=== PATIENT | female | born 1995 | race Caucasian/White ===

== ENCOUNTER 2020-07-10 10:45 | Outpatient (REF) | payer OTHER, SELFPAY | END 2020-07-10 10:46 | disposition home or self-care (01) | LOC: HO.LAB 10:45 | PROVIDERS: Visit Provider Internal Medicine | DX: Z20.828 Contact with and (suspected) exposure to other viral communicable diseases (principal) | CPT/HCPCS: C9803; U0003 ==

== ENCOUNTER 2020-07-24 12:38 | Emergency (ER) | payer OTHER, SELFPAY ==
[2020-07-24 12:51] VITALS: BP 136/79; PULSE 106; RESP 18; TEMP 37.2; O2SAT 97; BMI 30.1
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
[2020-07-24] MEDS: Acetaminophen 325 MG TABLET 975 MG PO (13:09)
[2020-07-24] MEDS: Bacitracin Oint 14 GM TUBE 1 APPL TOPICAL (13:11)
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
--- NOTE | 2020-07-24 14:46 | PC.NURSE ---
PT TO TRAVEL VIA PERSONAL CAR AT HER REQUEST, [employer] [facility] IS ACCEPTING PROVIDER, [employer]RA TRANSFER FORM OBTAINED
== END 2020-07-24 14:44 | disposition home or self-care (01) ==
PROVIDERS: Emergency Provider Emergency Medicine; PCP Internal Medicine
DX: O26.92 Pregnancy related conditions, unspecified, second trimester (principal); T21.22XA Burn of second degree of abdominal wall, initial encounter; T24.219A Burn of second degree of unspecified thigh, initial encounter; T31.0 Burns involving less than 10% of body surface; X11.8XXA Contact with other hot tap-water, initial encounter; Y92.000 Kitchen of unspecified non-institutional (private) residence as the place of occurrence of the external cause; Z3A.27 27 weeks gestation of pregnancy; Z79.899 Other long term (current) drug therapy
CPT/HCPCS: 99283; 99284; 99291

== ENCOUNTER 2020-07-27 12:56 | Emergency (ER) | payer OTHER, SELFPAY ==
[2020-07-27 13:59] VITALS: BP 109/53; PULSE 86; RESP 18; TEMP 36.8; O2SAT 98; BMI 29.6
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
[2020-07-27] MEDS: Silver Sulfadiazine 1 % Cream 20 GM TUBE 1 APPL TOPICAL (14:30)
[2020-07-27] MEDS: Acetaminophen 325 MG TABLET 650 MG PO (14:49)
--- NOTE | 2020-07-27 15:14 | PC.NURSE ---
HEART TONES 143 BPM, RIYA STERN
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
== END 2020-07-27 14:55 | disposition home or self-care (01) ==
PROVIDERS: Emergency Provider Emergency Medicine; PCP Internal Medicine
DX: T21.12XA Burn of first degree of abdominal wall, initial encounter (principal); T26.02XA Burn of left eyelid and periocular area, initial encounter; T26.01XA Burn of right eyelid and periocular area, initial encounter; X11.8XXA Contact with other hot tap-water, initial encounter; Y93.9 Activity, unspecified; Y92.9 Unspecified place or not applicable; Y99.8 Other external cause status; Z79.899 Other long term (current) drug therapy
CPT/HCPCS: 99283

== ENCOUNTER 2020-07-30 07:59 | Outpatient (RCR) | payer OTHER, SELFPAY | END 2020-08-15 08:08 | disposition home or self-care (01) | LOC: HO.WCC 07:59 | PROVIDERS: PCP Internal Medicine; Visit Provider Physician Assistant | DX: Z09 Encounter for follow-up examination after completed treatment for conditions other than malignant neoplasm (principal); Z33.1 Pregnant state, incidental; Z3A.24 24 weeks gestation of pregnancy | CPT/HCPCS: 99204; 99212 ==

== ENCOUNTER 2020-08-26 11:35 | Outpatient (REF) | payer OTHER, SELFPAY | END 2020-08-26 11:36 | disposition home or self-care (01) | LOC: HO.LAB 11:35 | PROVIDERS: Visit Provider Internal Medicine | DX: Z20.828 Contact with and (suspected) exposure to other viral communicable diseases (principal) | CPT/HCPCS: C9803; U0003 ==

== ENCOUNTER 2021-02-07 16:42 | Outpatient (REF) | payer OTHER, SELFPAY ==
[2021-02-07 19:20] LABS: Influenza A PCR NEGATIVE (Negative); Influenza B PCR NEGATIVE (Negative); Resp Syncy Virus RNA Qual PCR NEGATIVE (Negative); SARS COV2 PCR INHOUSE NEGATIVE (Negative)
== END 2021-02-07 16:43 | disposition home or self-care (01) ==
LOC: HO.LAB 16:42
PROVIDERS: Visit Provider Nurse Practitioner Family
DX: Z20.822 Contact with and (suspected) exposure to COVID-19 (principal); R05 Cough
CPT/HCPCS: 0241U; 36415

== ENCOUNTER 2021-05-30 09:15 | Outpatient (REF) | payer OTHER, SELFPAY | END 2021-05-30 09:16 | disposition home or self-care (01) | LOC: HO.LAB 09:15 | PROVIDERS: PCP Internal Medicine; Visit Provider Internal Medicine | DX: Z20.822 Contact with and (suspected) exposure to COVID-19 (principal) | CPT/HCPCS: C9803; U0003; U0005 ==

== ENCOUNTER 2021-06-05 20:35 | Emergency (ER) | payer OTHER, SELFPAY | END 2021-06-05 21:34 | disposition left against medical advice (07) | PROVIDERS: Emergency Provider Emergency Medicine; PCP Internal Medicine | DX: R10.9 Unspecified abdominal pain (principal) ==

== ENCOUNTER 2021-06-10 09:03 | Outpatient (REF) | payer OTHER, SELFPAY | END 2021-06-10 09:04 | disposition home or self-care (01) | LOC: HO.LAB 09:03 | PROVIDERS: Visit Provider Internal Medicine | DX: Z20.822 Contact with and (suspected) exposure to COVID-19 (principal) | CPT/HCPCS: C9803; U0003; U0005 ==

== ENCOUNTER 2021-07-24 08:21 | Emergency (ER) | payer OTHER, SELFPAY ==
[2021-07-24 08:38] VITALS: BMI 25.8
[2021-07-24 08:42] VITALS: BP 117/67; PULSE 70; RESP 18; TEMP 36.1; O2SAT 100
[2021-07-24 09:29] LABS: MANUAL DIFF FLAG NO
[2021-07-24 09:31] LABS: Basophils Percent Auto 0.3 % (0-2); Eosinophils Absolute Auto 0.1 X10*3/uL (0.0-0.4); Eosinophils Percent Auto 1.1 % (0-4); Hematocrit 38.7 % (37.0-47.0); Imm Gran Abs Auto 0.02 X10*3/uL (0.00-0.03); Imm Gran Pct Auto 0.3 % (0.0-0.4); Lymphocytes Absolute Auto 1.7 X10*3/uL (1.2-4.9); Mean Corpuscular HGB Conc 33.6 g/dl (31.0-35.0); Mean Corpuscular Hemoglobin 30.7 pg (27.0-33.0); Mean Corpuscular Volume 91.3 fL (80.0-98.0); Mean Platelet Volume 11.7 fL (9.4-12.3); Monocytes Absolute Auto 0.4 X10*3/uL (0.1-1.2); Monocytes Percent Auto 6.8 % (2-11); Neutrophils Absolute Auto 4.2 x10*3/uL (2.0-8.3); Neutrophils Percent Auto 65.5 % (45-73); Platelet Count 194 X10*3/uL (160-400); Red Blood Count 4.24 X10*6/uL (4.20-5.50); Red Cell Distribution Width 12.6 % (11.0-16.0); White Blood Count 6.4 X10*3/uL (4.8-10.8)
[2021-07-24 09:33] LABS: Appearance Urine CLOUDY; Color Urine ORANGE; Glucose Urine UA NEG (NEG); Leukocyte Esterase Urine TRACE (NEG); Nitrite Urine NEG (NEG); Specific Gravity - Urine 1.025 (1.005-1.025); UACC Culture Trigger YES; Urine Blood 3+ (NEG); Urine Ketones 5 MG/DL (NEG); Urine Protein 1+ MG/DL (NEG-TRACE)
[2021-07-24 09:36] LABS: UPreg QC Valid YES; Urine Pregnancy NEGATIVE (NEGATIVE)
[2021-07-24 09:49] LABS: Anion Gap 9 (12-20); Blood Urea Nitrogen 11 mg/dL (9-16); Calcium 8.8 mg/dL (8.4-10.2); Carbon Dioxide 27 mmol/L (22-29); Chloride 109 mmol/L (96-108); Creatinine Clr Calc Pharmacy 109.1; Estimated Glomerular Filt Rate > 60; Glucose Random 92 mg/dL (60-115); Potassium 4.2 mmol/L (3.3-5.1); Sodium 141 mmol/L (135-145)
[2021-07-24 09:58] LABS: Alanine Aminotransferase 25 U/L (0-31); Albumin Level 3.9 g/dL (3.5-5.0); Alkaline Phosphatase 77 U/L (39-117); Aspartate Amino Transferase 18 U/L (5-31); Bilirubin Direct 0.2 mg/dL (0.0-0.5); Bilirubin Total 0.6 mg/dL (0.0-1.0); Lipase 17 U/L (8-78); Magnesium 2.1 mg/dL (1.6-2.6); Total Protein 6.1 g/dL (6.5-8.0)
--- NOTE | 2021-07-24 10:29 | ED.ABDPAIN ---
HPI - Abdominal Pain General Chief Complaint: Abdominal Pain Stated Complaint: PELVIC LOWER ABD PAIN Time Seen by Provider: 07/24/21 09:30 Source: patient Mode of arrival: ambulatory History of Present Illness HPI narrative: 26-year-old female presenting to the ED complaining of suprapubic/pelvic pain x a few days and feeling movement in her abdomen. Also reports brown vaginal discharge. LMP 2 weeks ago. Is sexually active without the concern for STI. Denies fever, chills, nausea, vomiting and diarrhea/constipation, vaginal bleeding, vaginal lesions, dysuria/hematuria, flank pain MD elicited complaint: abdominal pain Related Data Home Medications Medication Instructions Recorded Confirmed medroxyprogesterone 150 mg/mL 150 mg IM [id number] 02/07/21 intramuscular suspension Previous Rx's Medication Instructions Recorded acetaminophen 325 mg tablet 650 mg PO Q6H PRN #14 tab 07/24/20 (Tylenol) nitrofurantoin 100 mg PO Q12H 7 Days #14 cap 07/24/21 monohydrate/macrocrystals 100 mg capsule (Macrobid) Allergies Allergy/AdvReac Type Severity Reaction Status Date / Time No Known Allergies Allergy Unverified 05/23/20 18:11 Review of Systems Review of Systems Constitutional: No Fever, No Chills, No Fatigue, No Malaise ENT/Mouth: No Ear Pain, No Nasal Congestion, No sore throat, No Rhinorrhea, No Swallowing Difficulty Eyes: No Eye Pain, No Swelling, No Redness Cardiovascular: No Chest Pain, No SOB, No Edema Respiratory: No Cough, No Sputum Gastrointestinal: No Nausea, No Vomiting, No Diarrhea, No Constipation, + Abdominal pain Genitourinary: No irregular bleeding, + vaginal discharge, No Dysuria, No Urinary Frequency, No Hematuria, No Flank Pain, No Urinary Flow Changes Musculoskeletal: No joint pain, No Myalgias, No Joint Swelling Skin: No Skin Lesions, No rash Neuro: No Weakness, No Numbness, No Headache Yes all other systems are reviewed and are negative Physical Exam Vital Signs: Vital Signs: Last Vital Signs Temp 98.2 F 07/24/21 10:37 Pulse 60 07/24/21 10:37 Resp 16 07/24/21 10:37 BP 98/56 L 07/24/21 10:37 Pulse Ox 100 07/24/21 10:37 Body Mass Index 25.8 Const: General: cooperative, healthy appearing, no acute distress, well developed, alert and awake Orientation/consciousness: patient oriented x3 Limitations: no limitations HENMT: Head: Yes normal to inspection Ears: hearing grossly normal bilaterally General nose exam: Normal external nose present Face and sinus: Yes normal facial exam Eyes: General: appearance normal, both eyes and all related structures EOM: EOMs intact bilaterally Neck: Neck: Yes normal visual inspection and Yes no meningeal signs Resp: Effort & Inspection: normal respiratory effort and no respiratory distress Auscultation: clear to auscultation bilaterally Cardio: Rate: regular rate Heart sounds: S1 normal heart sound present and S2 normal heart sound present GI: Inspection: Yes normal to inspection Palpation (GI): Soft to palpation, nontender, no guarding and not rigid : General: Yes no CVA tenderness Speculum Exam - Vagina: abnormal vaginal discharge (Brown thick vaginal discharge) and No vaginal bleeding Bimanual exam- vagina & uterus: normal bimanual exam and no cervical motion tenderness Bimanual Exam- Adnexa, other: normal adnexae and no tenderness OB/external & speculum: No vaginal bleeding Back/Spine/Pelvis: Back: no CVA tenderness Skin: Rashes: no rashes Wounds: no wounds Neuro: General: patient oriented x3, gait normal, tone normal, moves all extremities and no meningeal signs Gait exam (Neuro): Normal gait present Extrem: General: Yes normal to inspection Course Course Course Narrative: -1035--labs unremarkable -beta quant negative. UA infected, patient given 1st dose of Macrobid in the ED MDM - Abdominal Pain MDM Narrative Medical decision making narrative: 26-year-old female presenting to the ED complaining of suprapubic/pelvic pain x a few days and feeling movement in her abdomen. Also reports brown vaginal discharge.On exam vital signs stable, NAD/nontoxic, abdomen soft/nontender, no CVAT. Thick brown vaginal discharge noted on pelvic, no CMT or adnexal tenderness. Concern for vs menstrual breakthrough bleeding vs STI. Lower concern for ovarian torsion/TOA without tenderness on exam. Low concern for cyst/UTI/appendicitis/diverticulitis/renal stone/pyelo Plan: Labs, UA, STI testing, re-evaluate Medical Records Attestation: I reviewed the patient's medical records. Lab Data Attestation: I reviewed the patient's lab results. Result diagrams: 07/24/21 09:22 07/24/21 09:22 Labs: Lab Results 07/24/21 07/24/21 07/24/21 Range/Units 09:22 09:22 09:22 WBC 6.4 (4.8-10.8) X10*3/uL RBC 4.24 (4.20-5.50) X10*6/uL Hgb 13.0 (12.0-16.0) g/dl Hct 38.7 (37.0-47.0) % MCV 91.3 (80.0-98.0) fL MCH 30.7 (27.0-33.0) pg MCHC 33.6 (31.0-35.0) g/dl RDW 12.6 (11.0-16.0) % Plt Count 194 (160-400) X10*3/uL MPV 11.7 (9.4-12.3) fL Immature Gran % (Auto) 0.3 (0.0-0.4) % Neut % (Auto) 65.5 (45-73) % Lymph % (Auto) 26.0 (20-40) % [place] % (Auto) 6.8 (2-11) % Eos % (Auto) 1.1 (0-4) % Baso % (Auto) 0.3 (0-2) % Lymph # (Auto) 1.7 (1.2-4.9) X10*3/uL [place] # (Auto) 0.4 (0.1-1.2) X10*3/uL Eos # (Auto) 0.1 (0.0-0.4) X10*3/uL Baso # (Auto) 0.0 (0.0-0.2) X10*3/uL Abs Immat Gran (auto) 0.02 (0.00-0.03) X10*3/uL Absolute Neuts (auto) 4.2 (2.0-8.3) x10*3/uL Absolute Nucleated RBC 0.000 (0.0-0.012) X10*3/uL Nucleated RBC % (auto) 0.0 (0.0-0.2) /100WBC Sodium (135-145) mmol/L Potassium (3.3-5.1) mmol/L Chloride (96-108) mmol/L Carbon Dioxide (22-29) mmol/L Anion Gap (12-20) BUN (9-16) mg/dL Creatinine (0.5-1.4) mg/dL Estim Creat Clear Calc Estimated GFR Random Glucose (60-115) mg/dL Calcium (8.4-10.2) mg/dL Magnesium (1.6-2.6) mg/dL Total Bilirubin (0.0-1.0) mg/dL Direct Bilirubin (0.0-0.5) mg/dL AST (5-31) U/L ALT (0-31) U/L Alkaline Phosphatase (39-117) U/L Total Protein (6.5-8.0) g/dL Albumin (3.5-5.0) g/dL Lipase (8-78) U/L Beta HCG, Quant mIU/mL Urine Color ORANGE Urine Appearance CLOUDY Urine pH 7.0 (5.0-8.0) Ur Specific [place] 1.025 (1.005-1.025) Urine Protein 1+ H (NEG-TRACE) MG/DL Urine Glucose (UA) NEG (NEG) MG/DL Urine Ketones 5 (NEG) MG/DL Urine Blood 3+ H (NEG) Urine Nitrite NEG (NEG) Ur Leukocyte Esterase TRACE H (NEG) Urine RBC 1-4 (0) /HPF Urine WBC 5-9 H (0-4) /HPF Ur Squamous Epith Cells 4+ /LPF Urine Bacteria 4+ /LPF Urine Test NEGATIVE (NEGATIVE) 07/24/21 Range/Units 09:22 WBC (4.8-10.8) X10*3/uL RBC (4.20-5.50) X10*6/uL Hgb (12.0-16.0) g/dl Hct (37.0-47.0) % MCV (80.0-98.0) fL MCH (27.0-33.0) pg MCHC (31.0-35.0) g/dl RDW (11.0-16.0) % Plt Count (160-400) X10*3/uL MPV (9.4-12.3) fL Immature Gran % (Auto) (0.0-0.4) % Neut % (Auto) (45-73) % Lymph % (Auto) (20-40) % [place] % (Auto) (2-11) % Eos % (Auto) (0-4) % Baso % (Auto) (0-2) % Lymph # (Auto) (1.2-4.9) X10*3/uL [place] # (Auto) (0.1-1.2) X10*3/uL Eos # (Auto) (0.0-0.4) X10*3/uL Baso # (Auto) (0.0-0.2) X10*3/uL Abs Immat Gran (auto) (0.00-0.03) X10*3/uL Absolute Neuts (auto) (2.0-8.3) x10*3/uL Absolute Nucleated RBC (0.0-0.012) X10*3/uL Nucleated RBC % (auto) (0.0-0.2) /100WBC Sodium 141 (135-145) mmol/L Potassium 4.2 (3.3-5.1) mmol/L Chloride 109 H (96-108) mmol/L Carbon Dioxide 27 (22-29) mmol/L Anion Gap 9 L (12-20) BUN 11 (9-16) mg/dL Creatinine 0.79 (0.5-1.4) mg/dL Estim Creat Clear Calc 109.1 Estimated GFR > 60 Random Glucose 92 (60-115) mg/dL Calcium 8.8 (8.4-10.2) mg/dL Magnesium 2.1 (1.6-2.6) mg/dL Total Bilirubin 0.6 (0.0-1.0) mg/dL Direct Bilirubin 0.2 (0.0-0.5) mg/dL AST 18 (5-31) U/L ALT 25 (0-31) U/L Alkaline Phosphatase 77 (39-117) U/L Total Protein 6.1 L (6.5-8.0) g/dL Albumin 3.9 (3.5-5.0) g/dL Lipase 17 (8-78) U/L Beta HCG, Quant < 2 mIU/mL Urine Color Urine Appearance Urine pH (5.0-8.0) Ur Specific [place] (1.005-1.025) Urine Protein (NEG-TRACE) MG/DL Urine Glucose (UA) (NEG) MG/DL Urine Ketones (NEG) MG/DL Urine Blood (NEG) Urine Nitrite (NEG) Ur Leukocyte Esterase (NEG) Urine RBC (0) /HPF Urine WBC (0-4) /HPF Ur Squamous Epith Cells /LPF Urine Bacteria /LPF Urine Test (NEGATIVE) Discharge Plan Discharge Clinical Impression: UTI (urinary tract infection) Qualifiers: Urinary tract infection type: acute cystitis Hematuria presence: without hematuria Qualified Code(s): N30.00 - Acute cystitis without hematuria Patient Disposition: Home, Self-Care Instructions: Urinary Tract Infection in Women (ED) Additional Instructions: You have a urinary tract infection, Macrobid is an antibiotic, please take as prescribed Make sure you are staying hydrated at home Your tested for sexually transmitted infections, the culture should result in a couple days, we will call you for positive results only. Please refrain from any sexual contact until you know the results of her cultures if symptoms persist or worsen, you develop constant worsening abdominal pain, nausea/vomiting or fever please return to the ED Prescriptions: New nitrofurantoin monohyd/m-cryst [Macrobid] 100 mg capsule 100 mg PO Q12H 7 Days Qty: 14 RF: 0 No Action acetaminophen [Tylenol] 325 mg tablet 650 mg PO Q6H PRN (Reason: pain) Qty: 14 RF: 0 medroxyprogesterone 150 mg/mL suspension 150 mg IM [id number] RF: 0 Referrals: Po,Les Lan MD [Primary Care Provider] - 2 days PMF Past Medical History Attestation statement: The following information was validated with the patient. Medical History No known health problems Social History Social History Advance Directives: No Advance Directives Information Provided: Yes Patient : No
[2021-07-24 10:37] VITALS: BP 98/56; PULSE 60; RESP 16; TEMP 36.8; O2SAT 100
[2021-07-24 10:54] LABS: HCG Quantitative < 2 mIU/mL
[2021-07-24 11:03] LABS: Bacteria Urine 4+ /LPF; Squamous Epithelial Cell Urine 4+ /LPF
[2021-07-24 11:46] LABS: BV Int Neg Control Negative (Negative); BV Int Pos Control Positive (Positive)
[2021-07-24 12:55] LABS: CT PCR NOT DETECTED (Not Detect.); NG PCR NOT DETECTED (Not Detect.)
== END 2021-07-24 12:13 | disposition home or self-care (01) ==
PROVIDERS: Physician Assistant; Emergency Provider Emergency Medicine Emergency Medical Services; PCP Internal Medicine
DX: N30.00 Acute cystitis without hematuria (principal); R10.2 Pelvic and perineal pain
CPT/HCPCS: 36415; 80048; 80076; 81001; 81025; 83690; 83735; 84702; 85025; 87086; 87480; 87491; 87510; 87591; 87660; 99283

== ENCOUNTER 2021-10-31 01:26 | Emergency (ER) | payer OTHER, SELFPAY ==
[2021-10-31 01:30] VITALS: BP 114/48; PULSE 88; RESP 18; TEMP 36.8; O2SAT 98; BMI 27.3
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
--- NOTE | 2021-10-31 04:35 | PC.NURSE ---
0315 - PT EVALUATED BY DR PEACE. BILATERAL FEET EXAMINED. PLAN IS FOR BACITRACIN AND WRAP AND THEN DISCHARGE. THIS RN WENT INTO ROOM TO APPLY BACITRACIN DRESSING AND PT WAS GONE FROM ROOM.
== END 2021-10-31 03:15 | disposition home or self-care (01) ==
PROVIDERS: Emergency Provider Emergency Medicine Emergency Medical Services; PCP Internal Medicine
DX: T25.122A Burn of first degree of left foot, initial encounter (principal); T25.121A Burn of first degree of right foot, initial encounter; T31.0 Burns involving less than 10% of body surface; X11.8XXA Contact with other hot tap-water, initial encounter; Y93.9 Activity, unspecified; Y92.9 Unspecified place or not applicable; Y99.9 Unspecified external cause status; Z79.899 Other long term (current) drug therapy
CPT/HCPCS: 99282

== ENCOUNTER 2021-12-12 08:30 | Emergency (ER) | payer OTHER, SELFPAY ==
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
[2021-12-12 09:01] VITALS: BP 119/70; PULSE 93; RESP 18; TEMP 36.7; O2SAT 98; BMI 27.3
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
== END 2021-12-12 10:23 | disposition home or self-care (01) ==
PROVIDERS: Emergency Provider Emergency Medicine; PCP Internal Medicine
DX: L23.7 Allergic contact dermatitis due to plants, except food (principal); M79.602 Pain in left arm; Z79.899 Other long term (current) drug therapy
CPT/HCPCS: 73080; 99283

== ENCOUNTER 2022-03-12 15:52 | Emergency (ER) | payer OTHER, SELFPAY ==
--- NOTE | ~2022-03-12 | CT_ITS ---
EXAMINATION: CT BRAIN AND CT CERVICAL SPINE WITHOUT CONTRAST. CLINICAL INFORMATION: Fall, injury. COMPARISON: None TECHNIQUE: 5 mm thin axial and reformatted 2 mm thin sagittal and coronal images of brain were obtained. Subsequently axial 3 mm thin and reformatted 2 mm thin sagittal and coronal images of cervical spine were obtained. DLP 1306. FINDINGS: Brain: There is no acute intra-axial, extra-axial bleed, masses, collection or midline shift. There is no acute infarction evolution. The lateral ventricles are symmetrical in size and configuration without enlargement. Bone windows reveal no calvarial abnormality. There is no scalp soft tissue abnormality. Bilateral paranasal sinuses and mastoid air cells are well-aerated. Cervical spine: There is mild straightening of cervical lordosis. The vertebral heights, alignment and disc heights are preserved. The craniovertebral junction and the C1-C2 alignment is normal. There is no visible acute fracture, dislocation or subluxation seen. Visualized bilateral parotid, submandibular and thyroid glands are unremarkable. Central trachea and the bronchi are widely patent. The lung apices are clear. CT/CT head/brain wo con IMPRESSION: No acute intracranial process seen. Mild straightening of cervical lordosis likely spasm. There is no visible acute fracture, dislocation or subluxation.
--- NOTE | ~2022-03-12 | CT_ITS ---
EXAMINATION: CT CHEST, ABDOMEN AND PELVIS WITHOUT CONTRAST CLINICAL INFORMATION: Fall, injury COMPARISON: No pertinent prior studies are available for comparison TECHNIQUE: Multidetector volumetric imaging was performed from the thoracic inlet through the pubic symphysis without contrast. Sagittal and coronal reformatted images were obtained on the technologist workstation. Total exam dose-length product 1637 mGy-cm FINDINGS: CHEST: Lung: Trachea and central airway are patent. 3.5 mm nodule right upper lobe image 7:245. Focus of airspace/ground glass opacity in the posterior aspect of the left lower lobe. This is nonspecific, could reflect atelectasis. No focal consolidation, nodules or masses. Pleura: No pleural effusion or pneumothorax. Mediastinum: Visualized thyroid gland appears unremarkable. Normal heart size. No pericardial effusion. No hilar or mediastinal lymphadenopathy. Vascular: Normal caliber aorta. Chest Wall/Axilla: No axillary or internal mammary lymphadenopathy. ABDOMEN/PELVIS: Liver, Gallbladder and Biliary Tree: The liver is normal in size, shape, and attenuation. No focal hepatic lesion or biliary ductal dilatation is present. The gallbladder is unremarkable with no evidence of radiopaque gallstones, gallbladder wall thickening, or obvious pericholecystic inflammatory changes. Pancreas: Unremarkable. No acute inflammatory changes seen. Spleen: Unremarkable Adrenal Glands: Unremarkable Kidneys and Ureters: The kidneys are normal in size, shape, and attenuation. No hydronephrosis, hydroureter, or calculi. Gastrointestinal Tract: Stomach and small bowel non-dilated. No colonic wall thickening or pericolonic inflammatory changes. Normal appendix. Abdominal Wall: No significant hernia is appreciated. Lymphovascular Structures: No bulky lymphadenopathy. Nonspecific subcentimeter mesenteric lymph nodes. The aorta is unremarkable. Bladder: No focal mass or wall thickening seen. No bladder calculi. Pelvic Viscera: Within normal limits for CT Osseous Structures: No acute or suspicious osseous abnormality identified. Normal articulation at bilateral hip joints. CT/CT abdomen pelvis wo con IMPRESSION: -There is a 3.5 mm nodule in the right upper lobe. According to the UPDATED 2017 Fleischner Society recommendations, the advised follow-up imaging for solid nodules < 6 mm is: LOW RISK PATIENT: No routine follow-up. HIGH RISK PATIENT: Optional CT at 12 months. -Focal airspace/ground glass opacity in the posterior aspect of the left lower lobe. This could reflect atelectasis or perhaps inflammatory process. -No acute findings identified in the abdomen or pelvis.
--- NOTE | ~2022-03-12 | CT_ITS ---
EXAMINATION: CT BRAIN AND CT CERVICAL SPINE WITHOUT CONTRAST. CLINICAL INFORMATION: Fall, injury. COMPARISON: None TECHNIQUE: 5 mm thin axial and reformatted 2 mm thin sagittal and coronal images of brain were obtained. Subsequently axial 3 mm thin and reformatted 2 mm thin sagittal and coronal images of cervical spine were obtained. DLP 1306. FINDINGS: Brain: There is no acute intra-axial, extra-axial bleed, masses, collection or midline shift. There is no acute infarction evolution. The lateral ventricles are symmetrical in size and configuration without enlargement. Bone windows reveal no calvarial abnormality. There is no scalp soft tissue abnormality. Bilateral paranasal sinuses and mastoid air cells are well-aerated. Cervical spine: There is mild straightening of cervical lordosis. The vertebral heights, alignment and disc heights are preserved. The craniovertebral junction and the C1-C2 alignment is normal. There is no visible acute fracture, dislocation or subluxation seen. Visualized bilateral parotid, submandibular and thyroid glands are unremarkable. Central trachea and the bronchi are widely patent. The lung apices are clear. CT/CT cervical spine wo con IMPRESSION: No acute intracranial process seen. Mild straightening of cervical lordosis likely spasm. There is no visible acute fracture, dislocation or subluxation.
[2022-03-12 15:58] VITALS: BP 111/73; PULSE 126; RESP 20; TEMP 36.9; O2SAT 98; BMI 27.3
--- NOTE | 2022-03-12 16:26 | ED.GENADULT ---
HPI - General Adult General Chief complaint: Back Pain/Injury Stated complaint: lower pain injury Time Seen by Provider: 03/12/22 16:26 Source: patient Mode of arrival: ambulatory Limitations: no limitations History of Present Illness HPI narrative: Patient is a 26 year old female presenting to the emergency department today with low back pain and neck pain. Patient states that she jumped approximately 30 feet into a quarry and is not sure how she landed or what she hit, but it immediately hurt. Patient states that she did not lose consciousness with the initial incident however, she was feeling nauseated and went to vomit in the bathroom, then passed out. Patient states that she was able to ambulate and drive herself here but she is in pain still. Patient denies any dizziness, lightheadedness, abdominal pain, nausea, vomiting, fever, chills, blurry vision, double vision, loss of vision, chest pain, difficulty breathing, shortness of breath, night sweats, pain with urination, increased urinary frequency, increased urinary urgency, blood in her urine or stool, syncope or a near syncopal episode, bowel incontinence, bladder incontinence, bowel retention, bladder retention, or any other complaints at this time. Patient states that she had her control removed last month and she is at risk of being . Onset (ago): hour(s) Location: neck and back Severity: mild Severity scale (1-10): 4 Quality: aching Pain Consistency: constant Relieving factors: none Exacerbating factors: movement Associated symptoms: denies other symptoms Treatments prior to arrival: none Related Data Home Medications Medication Instructions Recorded Confirmed medroxyprogesterone 150 mg/mL 150 mg IM [id number] 02/07/21 intramuscular suspension Previous Rx's Medication Instructions Recorded acetaminophen 325 mg tablet 650 mg PO Q6H PRN pain #14 tabs 07/24/20 (Tylenol) azithromycin 250 mg tablet See Rx Instructions PO .COMPLEX #6 12/01/21 tabs acetaminophen 500 mg tablet 1,000 mg PO QID PRN fever or pain 12/12/21 (Tylenol Extra Strength) #14 tabs ibuprofen 800 mg tablet 800 mg PO Q8H PRN pain #14 tabs 12/12/21 oxycodone 5 mg tablet 5 mg PO Q6H PRN pain #10 tabs 12/12/21 prednisone 10 mg tablet See Rx Instructions PO .COMPLEX 12/12/21 #36 tabs Allergies Allergy/AdvReac Type Severity Reaction Status Date / Time No Known Allergies Allergy Unverified 12/01/21 11:32 Review of Systems Constitutional: Constitutional: Reports no additional constitutional complaints, Denies chills, Denies fever(s) and Denies night sweats Eyes: Eyes: Reports no additional eye complaints, Denies blurry vision, Denies change in vision, Denies diplopia, Denies eye discharge, Denies loss of vision and Denies eye pain ENT: Denies dizziness and Reports neck pain Cardiovascular: Cardiovascular: Reports no additional cardiovascular complaints, Denies chest pain, Denies lightheadedness, Denies Loss of Consciousness and Denies dyspnea Respiratory: Respiratory: Reports no additional respiratory complaints and Denies dyspnea Gastrointestinal: Gastrointestinal: Reports no additional gastrointestinal complaints, Denies abdominal pain, Denies melena, Denies hematochezia, Denies change in bowel habits and Denies change in stool character Genitourinary: Genitourinary: Denies hematuria, Denies urinary frequency, Denies dysuria, Denies urinary incontinence, Denies urinary hesitancy and Denies urinary urgency Musculoskeletal: Musculoskeletal: Reports no additional musculoskeletal complaints, Reports back pain, Reports neck pain, Denies numbness and Denies tingling Neurologic: Denies dizziness, Denies loss of vision, Denies numbness and Denies tingling Psychiatric: Psychiatric: Reports no additional psychiatric complaints Endocrine: Endocrine: Reports no additional endocrine complaints Hematologic/Lymphatic: Hematologic/Lymphatic: Reports no additional hematologic/lymphatic complaints Allergic/Immunologic: Allergic/Immunologic: Reports no additional allergic/immunologic complaints [facility] Past Medical History Attestation statement: The following information was validated with the patient. Source: old records reviewed Medical History No known health problems Social History Social History Advance Directives: No Advance Directives Information Provided: No Physical Exam ED Vital Signs: Vital Signs - 24 hr 03/12/22 15:58 03/12/22 16:30 Temperature 98.5 F 98.3 F Pulse Rate 126 H 91 Respiratory Rate 20 20 Blood Pressure 111/73 125/73 Pulse Oximetry 98 99 Oxygen Delivery Method Room Air Room Air BMI result Body Mass Index 27.3 Const General: cooperative, no acute distress, alert and awake Nutritional Appearance: well nourished Orientation/consciousness: patient oriented x3 Limitations: no limitations HENMT Head: Yes normal to inspection and Yes atraumatic Ears: hearing grossly normal bilaterally and external ears normal General nose exam: Normal external nose present, no nasal discharge noted and no epistaxis Face and sinus: Yes normal facial exam, No abrasion and No laceration Mouth: Normal oral and palatal mucosa present, no drooling and no muffled voice Eyes General: appearance normal, both eyes and all related structures Periorbital: periorbital findings normal Eyelids: Yes eyelids normal Conjunctivae: conjunctivae normal Pupils: Equal, round and reactive pupils present EOM: EOMs intact bilaterally Neck Other: presently in a collar Neck: Yes no lymphadenopathy Chest Chest palpation & inspection: normal inspection of the chest Resp Effort & Inspection: normal respiratory effort and able to speak in complete sentences GI Inspection: Yes normal to inspection Neuro General: patient oriented x3 and moves all extremities Cranial nerves: Yes Equal, round and reactive pupils present Cognition (Neuro): normal cognition Motor exam (neuro): 5/5 motor strength present throughout Sensory Exam: Normal double simultaneous stimulation for sensation Coordination: [id number] test normal Extrem General: Yes normal to inspection, Yes full ROM and Yes capillary refill normal Psych Appearance: grossly normal Mental Status: mental status grossly normal Affect: normal affect Attitude: cooperative Thought process: Normal thought process present Thought content: Normal thought content present Insight: Good insight present (Psych) Medical Decision Making MDM Narrative Medical decision making narrative: Patient's scans are still pending at this time. Patient signed out to Chris OLSON Medical Records Medical records reviewed: Yes I reviewed the patient's medical records. Discharge Plan Discharge Clinical Impression: Back pain Patient Disposition: Still a Patient Prescriptions: No Action acetaminophen [Tylenol] 325 mg tablet 650 mg PO Q6H PRN (Reason: pain) Qty: 14 0RF prednisone 10 mg tablet See Rx Instructions .ROUTE .COMPLEX Qty: 36 0RF Rx Instructions: prednisone 5 mg: take 8 tablets (40 mg) on Day 1; 7 tablets (35 mg) on Day 2; then decrease by 1 tablet every day until finished x 8 days oxycodone 5 mg tablet 5 mg PO Q6H PRN (Reason: pain) Qty: 10 0RF ibuprofen 800 mg tablet 800 mg PO Q8H PRN (Reason: pain) Qty: 14 0RF acetaminophen [Tylenol Extra Strength] 500 mg tablet 1,000 mg PO QID PRN (Reason: fever or pain) Qty: 14 0RF medroxyprogesterone 150 mg/mL suspension 150 mg IM [id number] azithromycin 250 mg tablet See Rx Instructions PO .COMPLEX Qty: 6 0RF Rx Instructions: take 500 mg today (day 1), then 250 mg for 4 days (days 2-5) PO
[2022-03-12 16:30] VITALS: BP 125/73; PULSE 91; RESP 20; TEMP 36.8; O2SAT 99
[2022-03-12] MEDS: Morphine Sulfate 2 MG/ML CARTRIDGE 4 MG IVPUSH (17:28)
[2022-03-12] MEDS: ondansetron HCL 4 MG/2 ML VIAL IVPUSH (17:28)
[2022-03-12 17:37] LABS: HCG Quantitative < 2 mIU/mL
[2022-03-12 18:31] VITALS: BP 104/67; PULSE 73; RESP 14; O2SAT 100
== END 2022-03-12 20:31 | disposition home or self-care (01) ==
PROVIDERS: Physician Assistant Medical; Emergency Provider Internal Medicine; PCP Internal Medicine
DX: M54.50 Low back pain, unspecified (principal); M54.2 Cervicalgia; M54.6 Pain in thoracic spine; R51.9 Headache, unspecified; R91.1 Solitary pulmonary nodule; R10.2 Pelvic and perineal pain; Z79.899 Other long term (current) drug therapy
CPT/HCPCS: 36415; 70450; 71250; 72125; 74176; 84702; 96374; 96375; 99284; J2270; J2405

== ENCOUNTER → 2022-05-04 15:12 | Outpatient (BNVA) | payer OTHER, SELFPAY | PROVIDERS: PCP Internal Medicine; Visit Provider Hospitalist | DX: R91.1 Solitary pulmonary nodule (principal); F17.200 Nicotine dependence, unspecified, uncomplicated | CPT/HCPCS: 99202 ==

== ENCOUNTER 2022-07-12 14:57 | Emergency (ER) | payer OTHER, SELFPAY ==
[2022-07-12 15:16] VITALS: BP 116/74; PULSE 77; RESP 18; TEMP 36.6; O2SAT 98; BMI 27.3
[2022-07-12 15:44] LABS: COVID-19 Test Negative (Negative); IDNOW Serial# 16C4AD1C; Influenza A Negative (Negative); Influenza B2 Negative (Negative)
== END 2022-07-12 19:00 | disposition left against medical advice (07) ==
PROVIDERS: Emergency Provider Emergency Medicine; PCP Internal Medicine
DX: J02.9 Acute pharyngitis, unspecified (principal); Z20.822 Contact with and (suspected) exposure to COVID-19; Z79.899 Other long term (current) drug therapy
CPT/HCPCS: 87502; 87635; 99281; 99282

== ENCOUNTER 2022-11-25 15:16 | Emergency (ER) | payer OTHER, SELFPAY ==
--- NOTE | 2022-11-25 15:51 | ED_ITS ---
HPI - General Adult General Chief complaint: Upper Respiratory Symptoms <Antwon Vicente - Last Filed: 11/25/22 15:52> Stated complaint: Fever, cough, congestion <Antwon Vicente - Last Filed: 11/25/22 15:52> Time Seen by Provider: 11/25/22 15:57 <Antwon Vicente - Last Filed: 11/25/22 15:52> Source: patient <TAWANDA Covarrubias - Last Filed: 11/25/22 17:44> Mode of arrival: ambulatory <TAWANDA Covarrubias - Last Filed: 11/25/22 17:44> Limitations: no limitations <TAWANDA Covarrubias Last Filed: 11/25/22 17:44> History of Present Illness HPI narrative: Patient is a 27 year old assigned female at with a history of depression and anxiety presenting to the emergency department today with a cough and subjective fevers. Patient states that since yesterday she has had a cough and subjective fevers with a sick child at home. Patient denies any dizziness, lightheadedness, abdominal pain, nausea, vomiting, chills, blurry vision, double vision, loss of vision, chest pain, difficulty breathing, shortness of breath, back pain, night sweats, pain with urination, increased urinary frequency, increased urinary urgency, blood in her urine or stool, syncope or a near syncopal episode, recent trauma or falls, bowel incontinence, bladder incontinence, bowel retention, bladder retention, or any other complaints at this time. <TAWANDA Covarrubias - Last Filed: 11/25/22 17:44> Onset (ago): day(s) (1) <TAWANDA Covarrubias - Last Filed: 11/25/22 17:44> Severity: mild <TAWANDA Covarrubias Last Filed: 11/25/22 17:44> Severity scale (1-10): 2 <TAWANDA Covarrubias - Last Filed: 11/25/22 17:44> Relieving factors: none <TAWANDA Covarrubias Last Filed: 11/25/22 17:44> Exacerbating factors: none <TAWANDA Covarrubias Last Filed: 11/25/22 17:44> Associated symptoms: cough and fever/chills <TAWANDA Covarrubias Last Filed: 11/25/22 17:44> Treatments prior to arrival: none <TAWANDA Covarrubias Last Filed: 11/25/22 17:44> Related Data Home medications: Previous Rx's Medication Instructions Recorded acetaminophen 500 mg tablet 1,000 mg PO QID PRN fever or pain 12/12/21 (Tylenol Extra Strength) #14 tabs ibuprofen 800 mg tablet 800 mg PO Q8H PRN pain #14 tabs 12/12/21 escitalopram oxalate 5 mg tablet 5 mg PO DAILY #30 tabs 04/01/22 hydroxyzine HCl 25 mg tablet 25 mg PO BID PRN anxiety #20 tabs 04/01/22 <Antwon Vicente - Last Filed: 11/25/22 15:52> Allergies/adverse reactions: Allergies Allergy/AdvReac Type Severity Reaction Status Date / Time No Known Allergies Allergy Verified 05/04/22 15:28 <Antwon Vicente - Last Filed: 11/25/22 15:52> Review of Systems Constitutional: Constitutional: Reports no additional constitutional complaints, Denies chills, Reports fever(s) (subjective) and Denies night sweats <TAWANDA Covarrubias - Last Filed: 11/25/22 17:44> Eyes: Eyes: Reports no additional eye complaints, Denies blurry vision, Denies change in vision, Denies diplopia, Denies eye discharge, Denies loss of vision and Denies eye pain <TAWANDA Covarrubias Last Filed: 11/25/22 17:44> ENT: Denies dizziness <TAWANDA Covarrubias Last Filed: 11/25/22 17:44> Cardiovascular: Cardiovascular: Reports no additional cardiovascular complaints, Denies chest pain, Denies lightheadedness, Denies Loss of Consciousness and Denies dyspnea <TAWANDA Covarrubias Last Filed: 11/25/22 17:44> Respiratory: Respiratory: Reports no additional respiratory complaints, Reports cough and Denies dyspnea <TAWANDA Covarrubias Last Filed: 11/25/22 17:44> Gastrointestinal: Gastrointestinal: Reports no additional gastrointestinal complaints, Denies abdominal pain, Denies melena, Denies hematochezia, Denies change in bowel habits and Denies change in stool character <TAWANDA Covarrubias - Last Filed: 11/25/22 17:44> Genitourinary: Genitourinary: Denies hematuria, Denies urinary frequency, Denies dysuria, Denies urinary incontinence, Denies urinary hesitancy and Denies urinary urgency <TAWANDA Covarrubias - Last Filed: 11/25/22 17:44> Musculoskeletal: Musculoskeletal: Reports no additional musculoskeletal complaints, Denies numbness and Denies tingling <TAWANDA Covarrubias - Last Filed: 11/25/22 17:44> Neurologic: Denies dizziness, Denies loss of vision, Denies numbness and Denies tingling <TAWANDA Covarrubias - Last Filed: 11/25/22 17:44> Psychiatric: Psychiatric: Reports no additional psychiatric complaints <TAWANDA Covarrubias - Last Filed: 11/25/22 17:44> Endocrine: Endocrine: Reports no additional endocrine complaints <TAWANDA Covarrubias - Last Filed: 11/25/22 17:44> Hematologic/Lymphatic: Hematologic/Lymphatic: Reports no additional hematologic/lymphatic complaints <TAWANDA Covarrubias - Last Filed: 11/25/22 17:44> Allergic/Immunologic: Allergic/Immunologic: Reports no additional allergic/immunologic complaints <TAWANDA Covarrubias - Last Filed: 11/25/22 17:44> PMF Past Medical History Attestation statement: The following information was validated with the patient. <TAWANDA Covarrubias - Last Filed: 11/25/22 17:44> Source: old records reviewed and nursing notes reviewed <TAWANDA Covarrubias - Last Filed: 11/25/22 17:44> Medical History: Medical History Abdominal pain Acute bronchitis Cough No known health problems Tobacco dependence <Antwon Vicente - Last Filed: 11/25/22 15:52> Surgical History: Surgical History No pertinent past surgical history <Antwon Vicente - Last Filed: 11/25/22 15:52> Family History Family History: Family History Mother History of thyroid cancer Father Diabetes <Antwon Vicente - Last Filed: 11/25/22 15:52> Social History Social History: Social History Housing: Apartment Alcohol intake: current Alcohol intake frequency: a few times a week Patient Tobacco Use Status: Current everyday Tobacco user Tobacco use type: Cigarette Substance Use Type: Marijuana Advance Directives: No Advance Directives Information Provided: No service: No Current occupational status: unemployed Cognitive needs: No Hearing needs: No Vision needs: No <Antwon Vicente - Last Filed: 11/25/22 15:52> Physical Exam ED Vital Signs: Vital Signs - 24 hr 11/25/22 15:55 Temperature 97.9 F Pulse Rate 104 H Respiratory Rate 16 Blood Pressure 120/66 Pulse Oximetry 98 Oxygen Delivery Method Room Air BMI result Body Mass Index 31.0 <Antwon Vicente - Last Filed: 11/25/22 15:52> Vital Signs - 24 hr 11/25/22 15:55 Temperature 97.9 F Pulse Rate 104 H Respiratory Rate 16 Blood Pressure 120/66 Pulse Oximetry 98 Oxygen Delivery Method Room Air BMI result Body Mass Index 31.0 <TAWANDA Covarrubias - Last Filed: 11/25/22 17:44> Const General: cooperative, no acute distress, alert and awake <TAWANDA Covarrubias - Last Filed: 11/25/22 17:44> Nutritional Appearance: well nourished <TAWANDA Covarrubias - Last Filed: 11/25/22 17:44> Orientation/consciousness: patient oriented x3 <TAWANDA Covarrubias - Last Filed: 11/25/22 17:44> Limitations: no limitations <TAWANDA Covarrubias - Last Filed: 11/25/22 17:44> HENMT Head: Yes normal to inspection and Yes atraumatic <TAWANDA Covarrubias - Last Filed: 11/25/22 17:44> Ears: hearing grossly normal bilaterally and external ears normal <TAWANDA Covarrubias Last Filed: 11/25/22 17:44> General nose exam: Normal external nose present, no nasal discharge noted and no epistaxis <TAWANDA Covarrubias - Last Filed: 11/25/22 17:44> Face and sinus: Yes normal facial exam, No abrasion and No laceration <Jasmin Jones PA - Last Filed: 11/25/22 17:44> Mouth: Normal oral and palatal mucosa present, no drooling and no muffled voice <Jasmin Jones PA - Last Filed: 11/25/22 17:44> Eyes General: appearance normal, both eyes and all related structures <Jasmin Streetlorna PA - Last Filed: 11/25/22 17:44> Periorbital: periorbital findings normal <Jasmin Jones PA - Last Filed: 11/25/22 17:44> Eyelids: Yes eyelids normal <Jamsin Streetlorna PA - Last Filed: 11/25/22 17:44> Conjunctivae: conjunctivae normal <Jasmin Jones PA - Last Filed: 11/25/22 17:44> Pupils: Equal, round and reactive pupils present <Jasmin Karen PA - Last Filed: 11/25/22 17:44> EOM: EOMs intact bilaterally <Jasmin Streetlorna CO - Last Filed: 11/25/22 17:44> Neck Neck: Yes normal visual inspection, Yes full ROM and Yes no lymphadenopathy <Nasir Streetlorna CO - Last Filed: 11/25/22 17:44> Chest Chest palpation & inspection: normal inspection of the chest <Jasmin Streetlorna PA Last Filed: 11/25/22 17:44> Resp Effort & Inspection: normal respiratory effort and able to speak in complete sentences <Jasmin Karen CO - Last Filed: 11/25/22 17:44> Auscultation: clear to auscultation bilaterally <Jasmin Streetlorna PA Last Filed: 11/25/22 17:44> Cardio Rate: regular rate <Jasmin Streetlorna PA - Last Filed: 11/25/22 17:44> Rhythm: regular rhythm <Jasmin Streetlorna PA - Last Filed: 11/25/22 17:44> GI Inspection: Yes normal to inspection <Jasmin Karen CO - Last Filed: 11/25/22 17:44> Palpation (GI): Soft to palpation, not firm, nontender and no guarding <TAWANDA Covarrubias Last Filed: 11/25/22 17:44> Neuro General: patient oriented x3 and moves all extremities <Jasminsoren StreetTAWANDA rothman - Last Filed: 11/25/22 17:44> Cranial nerves: Yes Equal, round and reactive pupils present <Jasmin JonesTAWANDA - Last Filed: 11/25/22 17:44> Cognition (Neuro): normal cognition <Jasminsoren StreetTAWANDA rothman - Last Filed: 11/25/22 17:44> Motor exam (neuro): 5/5 motor strength present throughout <Jasmin StreetTAWANDA rothman - Last Filed: 11/25/22 17:44> Sensory Exam: Normal double simultaneous stimulation for sensation <Jasmin TAWANDA Jones - Last Filed: 11/25/22 17:44> Coordination: [id number] test normal <Jasmin StreetTAWANDA rothman - Last Filed: 11/25/22 17:44> Extrem General: Yes normal to inspection, Yes full ROM and Yes capillary refill normal <TAWANDA Covarrubias - Last Filed: 11/25/22 17:44> Psych Appearance: grossly normal <Jasminsoren StreetTAWANDA rothman - Last Filed: 11/25/22 17:44> Mental Status: mental status grossly normal <Jasminsoren StreetTAWANDA rothman - Last Filed: 11/25/22 17:44> Affect: normal affect <Jasmin JonesTAWANDA rothman - Last Filed: 11/25/22 17:44> Attitude: cooperative <TAWANDA Covarrubias - Last Filed: 11/25/22 17:44> Thought process: Normal thought process present <TAWANDA Covarrubias - Last Filed: 11/25/22 17:44> Thought content: Normal thought content present <TAWANDA Covarrubias - Last Filed: 11/25/22 17:44> Insight: Good insight present (Psych) <TAWANDA Covarrubias - Last Filed: 11/25/22 17:44> Course Course Course Narrative: 27-year-old female presents for evaluation of fever, viral symptoms. Tawanda garnica's daughter and are here with similar symptoms. She reports her symptoms started 4 days ago. She is almost 21 weeks . No abdominal pain, vaginal bleeding or discharge. Viral panel ordered <Antwon Vicente - Last Filed: 11/25/22 15:52> Medical Decision Making Medical Decision Making [facility] Narrative: Patient is a 27 year old assigned female at with a history of depression and anxiety presenting to the emergency department today with a cough and subjective fevers. Patient's physical exam was unremarkable. Patient's COVID/RSV/Influenza swab was negative. I explained my physical exam findings as well as all test results to the patient. I answered all questions asked by the patient. I stressed the importance of the patient taking her medication as prescribed. I stressed the importance of the patient following up with her prima care provider. I stressed the importance of the patient returning to the emergency department immediately if her symptoms were to worsen or if she were to develop any dizziness, shortness of breath, difficulty breathing, chest pain, blurry vision, loss of vision, nausea, vomiting, abdominal pain, fever, chills, back pain, or any other complaints. Patient verbalized agreement and understanding with this treatment plan and discharge. <TAWANDA Covarrubias - Last Filed: 11/25/22 17:44> Differential Diagnosis Differential Diagnoses: The differential diagnosis associated with the presentation includes <TAWANDA Covarrubias - Last Filed: 11/25/22 17:44> viral illness <TAWANDA Covarrubias - Last Filed: 11/25/22 17:44> Lab Data [facility] Lab Attestation statement: I reviewed the patient's lab results. <TAWANDA Covarrubias - Last Filed: 11/25/22 17:44> Labs: Lab Results 11/25/22 Range/Units 16:06 Influenza Type A (PCR) NEGATIVE (Negative) Influenza Type B (PCR) NEGATIVE (Negative) RSV RNA Qual (PCR) NEGATIVE (Negative) SARS-CoV-2 RNA (RT-PCR) NEGATIVE (Negative) <Antwon Vicente - Last Filed: 11/25/22 15:52> Lab Results 11/25/22 Range/Units 16:06 Influenza Type A (PCR) NEGATIVE (Negative) Influenza Type B (PCR) NEGATIVE (Negative) RSV RNA Qual (PCR) NEGATIVE (Negative) SARS-CoV-2 RNA (RT-PCR) NEGATIVE (Negative) <TAWANDA Covarrubias - Last Filed: 11/25/22 17:44> Discharge Plan Discharge Clinical Impression: Viral infection <Antwon Vicente - Last Filed: 11/25/22 15:52> Patient Disposition: Home, Self-Care <Antwon Vicente - Last Filed: 11/25/22 15:52> Instructions: Viral Syndrome (ED) <Antwon Vicente - Last Filed: 11/25/22 15:52> Additional Instructions: Follow up with your primary care provider. Return to the emergency department immediately if your symptoms worsen or if you develop any dizziness, shortness of breath, difficulty breathing, chest pain, blurry vision, loss of vision, nausea, vomiting, abdominal pain, fever, chills, back pain, or any other complaints. <Antwon Vicente - Last Filed: 11/25/22 15:52> Prescriptions: No Action ibuprofen 800 mg tablet 800 mg PO Q8H PRN (Reason: pain) Qty: 14 0RF acetaminophen [Tylenol Extra Strength] 500 mg tablet 1,000 mg PO QID PRN (Reason: fever or pain) Qty: 14 0RF escitalopram oxalate 5 mg tablet 5 mg PO DAILY Qty: 30 1RF hydroxyzine HCl 25 mg tablet 25 mg PO BID PRN (Reason: anxiety) Qty: 20 0RF <Antwon Vicente - Last Filed: 11/25/22 15:52> Referrals: Paulino,Les Lan MD [Primary Care Provider] - <Antwon Vicente - Last Filed: 11/25/22 15:52> Stand Alone Forms: Work/School Release <Antwon Vicente - Last Filed: 11/25/22 15:52> Print Language: Trinidadian <Antwon Vicente - Last Filed: 11/25/22 15:52>
[2022-11-25 15:55] VITALS: BP 120/66; PULSE 104; RESP 16; TEMP 36.6; O2SAT 98; BMI 31.0
--- OUTSIDE RECORDS SUMMARY | 2022-11-25 16:05 | XMS_ITS | Encounter Summary ---
:1995 Author Reason for Visit Ear Pain Bilateral ear pain, sneezing, runny nose started 2 days ago. Assessment and Plan 1. Exposure to SARS-CoV-2 ? rapid SARS CoV 2 Ag, QL [place], respirato ry specimen 2. Acute right otitis media ? earache: care instructions ? ear infection (otitis media): care in structions ? rapid flu (A+B) ? amoxicillin 500 mg tablet ? Allergy Relief (fluticasone) 50 mcg/a ctuation nasal spray,suspension 3. Discussion Note If you test positive for COVID-19, stay home for at least 5 days and isolate from others in your home. You are likely most infectious during th nacho first 5 days. Wear a high-quality mask if you must be around others at home and in public. Do not go places where you are unable to wear a mask. For travel guidance, see [facility]s Travel webpage. Do not travel. Stay home and separate from others as mu ch as possible. Use a separate bathroom, if possible. Take steps to improve ventilation at [facility] e, if possible. Don???t share personal household items, like cups, towels, and utensils. Monitor your symptoms. If you have an em ergency warning sign (like trouble breathing), seek emergency medical care immediately. If you had symptoms and: Your symptoms are improving You may end isolation after day 5 if: You are fever-free for 24 hours (without the use of fever-reducing medication). Your symptoms are not improving Continue to isolate until: You are fever-free for 24 hours (without the use of fever-reducing medication). Your symptoms are improving. Regardless of when you end isolation Until at least day 11: Avoid being around people who are more l ikely to get very sick from COVID-19. Remember to wear a high-quality mask whe n indoors around others at home and in public. Do not go places where you are unable to wear a mask until you are able to discontinue masking (see below). For travel guidance, see [facility]s Travel webpage. Plan of Care Patient Instructions An ear infection may start with a cold and affect the middle ear (otitis media). It can hurt a lot. Most ear infections clear up on their own in a couple of days and do not need antibiotics. Also, anti biotics do not work against viruses, whi ch may be the cause of your infection. Regular doses of pain relievers are the best way to reduce your fever and help you feel better. How can you care for yourself at home? Take pain medicines exactly as directed. If the doctor gave you a prescription me dicine for pain, take it as prescribed. If you are not taking a prescription aleksandr n medicine, take an twjl-tgk-xpxlyce medicine, such as acetaminophen (Tylenol), ibuprofen (Advil, Motrin), or naproxen (Aleve). Read and follow all instructions on the label. Do not take two or more pain medicines a t the same time unless the doctor told you to. Many pain medicines have acetaminophen, which is Tylenol. Too much acetaminophen (Tylenol) can be harmful. Plan to take a full dose of pain relieve r before bedtime. Getting enough sleep will help you get better. Try a warm, moist face cloth on the ear. It may help relieve pain. If your doctor prescribed antibiotics, t angela them as directed. Do not stop taking them just because you feel better. You need to take the full course of antibiotics. Reminders Provider Appointments None recorded. ? ? Lab Rapid Flu (A+B) 10/04/2022[facility] ? Rapid SARS CoV 2 Ag, [place], [id number] Res[facility] Specimen Referral None recorded. ? ? Procedures None recorded. ? ? Surgeries None recorded. ? ? Imaging None recorded. ? ? Medications Name Start Date ? ? Allergy Relief (fluticasone) 50 mcg/actuation nasal sp ray,suspension ? [place] 1 spray twice a day by intranasal route as dire cted for 30 days. amoxicillin 500 mg tablet ? Take 1 tablet every 8 hours by oral route with meals for 10 days. ? Medications Administered None recorded. Vitals Height Weight BMI Blood Pressure 5 ft 8 in 189 lbs 16 oz 28.9 kg/m2 105/70 mm[Hg] Results Lab Results Date Name Specimen Result Interpretation Description Value Range Status Address ? 10/04/2022 Rapid SARS ? Reference Normal=Negative ? ? [facility] CoV 2 Ag, QL Range [address], [place], COVID [place] Respiratory Antigen Specimen ? ? ? Result negative ? ? [facility] COVID [address], Antigen [place] 10/04/2022 Rapid Flu ? Reference Normal = ? ? [facility]: (A+B) Range Negative [address], [place] ? ? ? Result negative ? ? [facility] Influenza [address], a [place] ? ? ? Reference Normal = ? ? [address]: Range Negative [address], [place] ? ? ? Result negative ? ? [facility] Influenza [address], B [place] Allergies Code Code System Name Reaction Severity Onset NKDA ? ? ? Problems No Known Problems Procedures None recorded. Vaccine List None recorded. Social History Tobacco Smoking Status Current Every Day Smoker Notes: One cigarette per day What is your level of alcohol None consumption? Do you or have you ever used N any other forms of tobacco or nicotine? Do you use any illicit or N recreational drugs? Have you recently traveled N abroad? Family History Relation Problem Onset Age of Age Notes Father No current problems or (No Information) N/A ( No Notes) disability Mother No current problems or (No Information) N/A ( No Notes) disability Functional Status Unknown. Past Encounters Encounter Date Diagnosis Provider 10/04/2022 Exposure to SARS-CoV-2; Acute Right Fais julio cesar Williamson, [employer]: [address] [facility] [address], [place] [address], Ph. History of Present Illness ? Congestion Reported By: Patient Notes: nasal congestion with post nasal drip x 3 days. denies nay fever or fever with chills. no SOB or respiratory distress. ? Ear Pain Brief HPI Reported By: Patient Review of Systems ? UC General Adult ROS, UC ROS Basic COVID UC Reported By: Patient Constitutional: Constitutional: no fever Eyes: vision problems no blurred v ision, no vision distortion ENMT: Ears: ear pain. Nose: nasal discharge Cardiovascular: cardiovascular symptoms: no lightheadedness, no chest pain Respiratory: Respiratory: no shortness of breath. wheezing no wheezing. cough no cough Gastrointestinal: vomiting no vomiting. nausea no nausea Genitourinary: Genitourinary: no increased frequency, no pain during urination (dysuria), no burn ing sensation during urination Musculoskeletal: back no pain: in the upper b ack, no pain: in the middle of the back, no lower back pain. ne uromuscular / connective / soft tissue symptoms no muscle ac hes: generalized (myalgias): started suddenly Integumentary: Skin: no rashes Neurologic: Neurologic: no weakness, no numbness. sensory disturbances no tingling (paresthesia) otolaryngeal symptoms: Throat no sore throat Physical Exam ? COVID-19 Exam, UC General Ad ult Exam Both, Ear Pain Exam Reported By: Patient General Appearance: General Appearance normal ap pearance, no acute distress, healthy-appearing, well-nour ished, well-developed ENMT: Ears: TM erythematous, middl e ear fluid; cloudy bilateral ear TM with clear fluid. right TM i njected. Nose: nasal discharge--rhinorrhea; Boggy nasal mucosa bilateral nostrils with clear mild to moderate disch arge. Pharynx: erythema; erythematous , edematous with clear disch arge posterior pharynx Lymph Nodes: Lymph Nodes no LAD Lungs: Auscultation clear to auscul tation, no rales/crackles, no rhonchi, no wheezing, no dul lness, no hyperresonance, breath sounds normal. Respiratory e ffort: no dyspnea, nonlabored. Percussion: normal resonance Cardiovascular: Rate And Rhythm RRR. Heart S ounds normal s1, normal s2, no murmurs, regular rate and rh ythm, no rubs, no gallops. Apical Impulse: not displaced. Neck vessels: no carotid bruits. Peripheral pulses normal thr oughout Eyes: Lids and Conjunctivae: non-i njected, no discharge, no pallor. Globe no globe trauma, no re dness. Pupils: PERRLA, brisk. Corneas: grossly intact. EOM : extraocular movement intact. Lens: clear. Sclerae: non-icteric. Vision: peripheral vision grossly intact, acuity grossly intac t Abdomen: Bowel Sounds: normoactive. I nspection and Palpation: soft, non-distended, no tenderness , no guarding, no rebound tenderness, no mass, no CVA tenderness. Liver: non-tender, no hepatomegaly. Spleen: non-tender, no splen omegaly. Hernia: none palpable Musculoskeletal:: Motor Strength and Tone: nor mal motor strength, normal tone. Joints, Bones, and Muscles: normal movement of all extremities, no bony abnormalities, no co ntractures, no malalignment, no tenderness. Extremities: no cyanosis, no edema, no varicosities, negative Leo's sign
--- OUTSIDE RECORDS SUMMARY | 2022-11-25 16:05 | XMS_ITS ---
:1995 Author Care Team Providers Name Role Phone Kaylar Primary Care Provider Unavailable Allergies Code Code System Name Reaction Severity Status Onset NKDA ? Medications Name Status Start Date Stop Date ? ? Allergy Relief (fluticasone) 50 mcg/actuation nasal spray,suspen osvaldo Active ? Not available [place] 1 spray twice a day by intranasal route as directed for 3 0 days. amoxicillin 500 mg tablet Active ? Not av ailable Take 1 tablet every 8 hours by oral route with meals for 10 day s. Active ? Not available Problems No Known Problems Procedures None recorded. Results Lab Results Date Name Specimen Result Interpretation Description Value Range Status Address ? 10/04/2022 Rapid SARS ? Reference Normal=Negative ? ? [facility] CoV 2 Ag, QL Range [address], [place], COVID [place] Respiratory Antigen Specimen ? ? ? Result negative ? ? [facility] COVID [address], Antigen [place] 10/04/2022 Rapid Flu ? Reference Normal = ? ? [facility]: (A+B) Range Negative [address], [place] ? ? ? Result negative ? ? [facility] Influenza [address], a [place] ? ? ? Reference Normal = ? ? [address] 01[facility]: Range Negative [address], [place] ? ? ? Result negative ? ? [facility] Influenza [address], B [place] Past Encounters Encounter Date Diagnosis Provider 10/04/2022 Exposure to SARS-CoV-2; Acute Right Fais julio cesar Williamson, [employer] ATTENDANT: [address], [place] [address], Ph. 06/07/2022[facility]: [address] [place] [address], Ph. 06/04/2021_Niyah al[facility]: [address] [place] [place] [address], Ph. Social History Tobacco Smoking Status Current Every Day Smoker Notes: One cigarette per day Vaccine List None recorded. Plan of Care Patient Instructions An ear [...] a prescription aleksandr n medicine, take an rgka-tss-tytngvz medicine, such as acetaminophen (Tylenol), ibuprofen (Advil, [...] Provider Appointments None recorded. ? ? Lab None recorded. ? ? Referral None recorded. ? ? Procedures None recorded. ? ? Surgeries None recorded. ? ? Imaging None recorded. ? ? Vitals Height Weight BMI Blood Pressure 5 ft 8 in 190 lbs 28.9 kg/m2 105/70 mm[Hg]
[2022-11-25 17:00] LABS: Influenza A PCR NEGATIVE (Negative); Influenza B PCR NEGATIVE (Negative); Resp Syncy Virus RNA Qual PCR NEGATIVE (Negative); SARS COV2 PCR INHOUSE NEGATIVE (Negative)
== END 2022-11-25 18:17 | disposition home or self-care (01) ==
PROVIDERS: Physician Assistant; Emergency Provider Emergency Medicine; PCP Internal Medicine
DX: B34.9 Viral infection, unspecified (principal); R05.9 Cough, unspecified; Z20.822 Contact with and (suspected) exposure to COVID-19; Z20.828 Contact with and (suspected) exposure to other viral communicable diseases; F17.210 Nicotine dependence, cigarettes, uncomplicated; F12.90 Cannabis use, unspecified, uncomplicated
CPT/HCPCS: 0241U; 99282; 99283

== ENCOUNTER 2023-05-31 15:09 | Outpatient (AMB) | payer OTHER, SELFPAY ==
[2023-05-31 15:20] VITALS: BP 106/64; PULSE 81; TEMP 36.4; O2SAT 98; BMI 28.9
--- NOTE | 2023-05-31 15:20 | AM.OFFWIN_ITS ---
Intake Vital Signs 05/31/23 15:20 Height 5 ft 8 in Weight 190 lb BMI 28.9 BP 106/64 Blood Pressure Location Rt brachial Position Sitting Pulse 81 Pulse Source Pulse Oximeter Temp 97.5 F Temp Source Temporal Artery Scan Pulse Oximetry (%) 98 Intake Visit Reasons: EST/stomach issues Intake Note: pt is here for c/o stomach issues Patient Tobacco Use Status: Current everyday Tobacco user Allergies No Known Allergies Allergy (Verified 05/31/23 16:19) HPI EST/stomach issues HPI Details 27-year-old female [facility] sick [facility]. Patient is reporting diarrhea for the past 3 days. 6-10 bowel movements a day. No nausea or vomiting. No family members sick. Patient is not nursing, she delivered a baby a month ago. [facility] Medical History (Updated 05/31/23 @ 16:20 by Garrtet Pickett MD) Abdominal pain Tobacco dependence Acute bronchitis Cough No known health problems Surgical History No pertinent past surgical history Family History Mother History of thyroid cancer Father Diabetes Social History Housing: Apartment Alcohol intake: current Alcohol intake frequency: a few times a week Patient Tobacco Use Status: Current everyday Tobacco user Tobacco use type: Cigarette Substance Use Type: Marijuana service: No Current occupational status: unemployed Cognitive needs: No Hearing needs: No Vision needs: No Physical Exam Vital Signs: Last Vital Signs Temp 97.5 F 05/31/23 15:20 Pulse 81 05/31/23 15:20 BP 106/64 05/31/23 15:20 Pulse Ox 98 05/31/23 15:20 BMI result Body Mass Index 28.9 Const General: cooperative and healthy appearing Nutritional Appearance: well nourished Orientation/consciousness: patient oriented x3 Limitations: no limitations HEENT Head: Yes normal to inspection Eyes General: appearance normal, both eyes and all related structures Neck Neck: Yes normal visual inspection Chest Chest palpation & inspection: normal palpation of entire chest wall Resp Effort & Inspection: normal respiratory effort Neuro General: patient oriented x3 Assessment & Plan Assessment & Plan (1) Abdominal pain: Code(s): R10.9 - Unspecified abdominal pain Plan: Cipro added to the regimen. Increase fluid intake. If symptoms not better to follow-up here. Coding Level of Care Code Est Pt Level 3 (01801) Diagnoses Abdominal pain R10.9
== END 2023-05-31 16:23 | disposition home or self-care (01) ==
PROVIDERS: PCP Internal Medicine; Visit Provider Internal Medicine
DX: R10.9 Unspecified abdominal pain (principal)
CPT/HCPCS: 99213

== ENCOUNTER 2023-05-31 19:57 | Emergency (ER) | payer OTHER, SELFPAY ==
[2023-05-31 20:28] VITALS: BP 119/69; PULSE 70; RESP 18; TEMP 36.5; O2SAT 97; BMI 28.9
--- NOTE | 2023-05-31 20:29 | ED.GENADULT ---
HPI - General Adult General Chief complaint: Nausea/Vomiting/Diarrhea Stated complaint: ? viral infection sent at urgent care Time Seen by Provider: 05/31/23 22:25 Source: patient Mode of arrival: ambulatory Limitations: no limitations History of Present Illness HPI narrative: Patient been having diarrhea for last 3 days watery about 10-15 times had some bright red blood today earlier with nauseated diffuse abdominal cramping no recent travel no seafood intake no other family member sick no fever chills does not get sick like this before Related Data Previous Rx's Medication Instructions Recorded loperamide 2 mg tablet (Imodium 2 mg PO Q6H PRN loose stool #14 06/01/23 A-D) tabs ondansetron 4 mg disintegrating 4 mg PO Q6-8H PRN nausea and 06/01/23 tablet vomiting #10 tabs Allergies Allergy/AdvReac Type Severity Reaction Status Date / Time No Known Allergies Allergy Verified 05/31/23 20:32 Review of Systems Review of Systems: Yes all other systems are reviewed and are negative [facility] Past Medical History Medical History Abdominal pain Tobacco dependence Acute bronchitis Cough No known health problems Surgical History No pertinent past surgical history Family History Family History Mother History of thyroid cancer Father Diabetes Social History Social History Housing: Apartment Alcohol intake: current Alcohol intake frequency: a few times a month Patient Tobacco Use Status: Current everyday Tobacco user Tobacco use type: Cigarette Smoked in Last 30 Days: Yes Substance Use Type: Marijuana Substance Use Frequency: Occasionally Advance Directives: No Advance Directives Information Provided: Yes service: No Current occupational status: unemployed Cognitive needs: No Hearing needs: No Vision needs: No Physical Exam ED Vital Signs: Vital Signs - 24 hr 05/31/23 20:28 05/31/23 23:42 Temperature 97.7 F 98.2 F Pulse Rate 70 58 Respiratory Rate 18 18 Blood Pressure 119/69 117/70 Pulse Oximetry 97 97 Oxygen Delivery Method Room Air Room Air BMI result Body Mass Index 28.9 Appearance: Alert. Oriented X3. No acute distress. ENT: Pharynx normal. Oral Mucosa moist Neck: Normal inspection. Neck supple. CVS: Normal heart rate and rhythm. Pulses normal. Respiratory: No respiratory distress. Equal air entry bilateral, no wheezing/rales/rhonchi Abdomen: Soft and nontender. Bowel sounds are present, no mass palpable, no CVA tenderness Skin: Skin warm and dry. Normal skin color. Normal skin turgor. Extremities: No lower extremity edema. No calf tenderness Neuro: Oriented X 3. Course Course Course Narrative: RME performed by Jasmin Jones PA-C. Patient is a 27 year old assigned female at presenting to the emergency department with diarrhea. Labs and swabs ordered. Patient placed back in the waiting room pending room availability and results. Medications Administered Discontinued Medications Generic Name Dose Route Start Last Admin Trade Name Freq PRN Reason Stop Dose Admin Loperamide HCl 4 mg 05/31/23 23:01 05/31/23 23:47 Loperamide Hcl 2 Mg Capsule PO 05/31/23 23:02 4 mg ONCE ONE Administration Ondansetron HCl 4 mg 05/31/23 23:01 05/31/23 23:47 Ondansetron Odt 4 Mg Tab.Rapdis TRANSLINGU 05/31/23 23:02 4 mg ONCE ONE Administration Medical Decision Making Medical Decision Making [facility] Narrative: Patient labs are stable will give her Imodium/ Zofran Patient feeling better after medications taking p.o. fluids discharge patient home Differential Diagnosis Differential Diagnoses: The differential diagnosis associated with the presentation includes Gastroenteritis/viral syndrome Lab Data [facility] Lab Attestation statement: I reviewed the patient's lab results. 05/31/23 20:50 05/31/23 20:50 Labs: Lab Results 05/31/23 05/31/23 Range/Units 20:50 23:29 WBC 8.9 (4.8-10.8) X10*3/uL RBC 4.50 (4.20-5.50) X10*6/uL Hgb 14.0 (12.0-16.0) g/dl Hct 41.0 (37.0-47.0) % MCV 91.1 (80.0-98.0) fL MCH 31.1 (27.0-33.0) pg MCHC 34.1 (31.0-35.0) g/dl RDW 12.3 (11.0-16.0) % Plt Count 261 D (160-400) X10*3/uL MPV 10.7 (9.4-12.3) fL Immature Gran % (Auto) 0.2 (0.0-0.4) % Neut % (Auto) 66.7 (45-73) % Lymph % (Auto) 22.1 (20-40) % [place] % (Auto) 7.5 (2-11) % Eos % (Auto) 3.1 (0-4) % Baso % (Auto) 0.4 (0-2) % Lymph # (Auto) 2.0 (1.2-4.9) X10*3/uL [place] # (Auto) 0.7 (0.1-1.2) X10*3/uL Eos # (Auto) 0.3 (0.0-0.4) X10*3/uL Baso # (Auto) 0.0 (0.0-0.2) X10*3/uL Abs Immat Gran (auto) 0.02 (0.00-0.03) X10*3/uL Absolute Neuts (auto) 6.0 (2.0-8.3) x10*3/uL Absolute Nucleated RBC 0.000 (0.0-0.012) X10*3/uL Nucleated RBC % (auto) 0.0 (0.0-0.2) /100WBC Sodium 140 (135-145) mmol/L Potassium 4.0 (3.3-5.1) mmol/L Chloride 106 (96-108) mmol/L Carbon Dioxide 23 (22-29) mmol/L Anion Gap 15 (12-20) BUN 13 (9-16) mg/dL Creatinine 0.80 (0.5-1.4) mg/dL Estim Creat Clear Calc 120.3 Estimated GFR > 60 Random Glucose 91 (60-115) mg/dL Calcium 9.7 D (8.4-10.2) mg/dL Magnesium 2.1 (1.6-2.6) mg/dL Total Bilirubin 0.4 (0.0-1.0) mg/dL AST 33 H (5-31) U/L ALT 51 H (0-31) U/L Alkaline Phosphatase 101 (39-117) U/L Total Protein 6.9 (6.5-8.0) g/dL Albumin 4.1 (3.5-5.0) g/dL Beta HCG, Quant < 2 mIU/mL Urine Color RED Urine Appearance Turbid Urine pH 5.5 (5.0-9.0) Ur Specific [place] >= 1.030 H (1.005-1.025) Urine Protein 100 (2+) H (Neg-Trace) mg/dL Urine Glucose (UA) Negative (Negative) mg/dL Urine Ketones Negative (Negative) mg/dL Urine Blood Large (3+) H (Negative) Urine Nitrite Negative (Negative) Ur Leukocyte Esterase Trace H (Negative) Urine RBC >20 H (0-2) /HPF Urine WBC 21-50 (0-5) /HPF Ur Squamous Epith Cells 11-20 (0-2) /HPF Urine Bacteria 2+ (None Seen) Hyaline Casts 0-2 (0-2) /LPF Influenza Type A (PCR) NEGATIVE (Negative) Influenza Type B (PCR) NEGATIVE (Negative) RSV RNA Qual (PCR) NEGATIVE (Negative) SARS-CoV-2 RNA (RT-PCR) NEGATIVE (Negative) Discharge Plan Discharge Clinical Impression: Gastroenteritis Patient Disposition: Home, Self-Care Instructions: Gastroenteritis (ED) Additional Instructions: Drink plenty of fluids Zofran for nausea/vomiting every 6 hour as needed Imodium 1 tablet every 6 hours as needed for severe diarrhea, maximum 4 tablets a day Prescriptions: New loperamide [Imodium A-D] 2 mg tablet 2 mg PO Q6H PRN (Reason: loose stool) Qty: 14 0RF ondansetron 4 mg tablet,disintegrating 4 mg PO Q6-8H PRN (Reason: nausea and vomiting) Qty: 10 0RF Interventions: ED Discharge Assessment Last Done: 06/01/23 00:38 Discharge Date/Time: 06/01/23 00:39
[2023-05-31 20:55] LABS: MANUAL DIFF FLAG NO
[2023-05-31 21:06] LABS: Basophils Percent Auto 0.4 % (0-2); Eosinophils Absolute Auto 0.3 X10*3/uL (0.0-0.4); Eosinophils Percent Auto 3.1 % (0-4); Imm Gran Abs Auto 0.02 X10*3/uL (0.00-0.03); Imm Gran Pct Auto 0.2 % (0.0-0.4); Lymphocytes Percent Auto 22.1 % (20-40); Mean Corpuscular HGB Conc 34.1 g/dl (31.0-35.0); Mean Corpuscular Hemoglobin 31.1 pg (27.0-33.0); Mean Corpuscular Volume 91.1 fL (80.0-98.0); Mean Platelet Volume 10.7 fL (9.4-12.3); Monocytes Absolute Auto 0.7 X10*3/uL (0.1-1.2); Monocytes Percent Auto 7.5 % (2-11); Neutrophils Percent Auto 66.7 % (45-73); Platelet Count 261 X10*3/uL (160-400); Red Cell Distribution Width 12.3 % (11.0-16.0); White Blood Count 8.9 X10*3/uL (4.8-10.8)
[2023-05-31 21:17] LABS: Alanine Aminotransferase 51 U/L (0-31); Albumin Level 4.1 g/dL (3.5-5.0); Alkaline Phosphatase 101 U/L (39-117); Anion Gap 15 (12-20); Aspartate Amino Transferase 33 U/L (5-31); Bilirubin Total 0.4 mg/dL (0.0-1.0); Blood Urea Nitrogen 13 mg/dL (9-16); Calcium 9.7 mg/dL (8.4-10.2); Carbon Dioxide 23 mmol/L (22-29); Chloride 106 mmol/L (96-108); Creatinine Clr Calc Pharmacy 120.3; Estimated Glomerular Filt Rate > 60; Glucose Random 91 mg/dL (60-115); HCG Quantitative < 2 mIU/mL; Magnesium 2.1 mg/dL (1.6-2.6); Sodium 140 mmol/L (135-145); Total Protein 6.9 g/dL (6.5-8.0)
[2023-05-31 21:32] LABS: Influenza A PCR NEGATIVE (Negative); Influenza B PCR NEGATIVE (Negative); Resp Syncy Virus RNA Qual PCR NEGATIVE (Negative); SARS COV2 PCR INHOUSE NEGATIVE (Negative)
[2023-05-31 23:42] VITALS: BP 117/70; PULSE 58; RESP 18; TEMP 36.8; O2SAT 97
[2023-05-31 23:43] LABS: Appearance Urine Turbid; Color Urine RED; Glucose Urine UA Negative (Negative); Leukocyte Esterase Urine Trace (Negative); Nitrite Urine Negative (Negative); PH 5.5 (5.0-9.0); Specific Gravity - Urine >= 1.030 (1.005-1.025); UMIC TRIGGER UACC YES; Urine Blood Large (3+) (Negative); Urine Ketones Negative (Negative); Urine Protein 100 (2+) mg/dL (Neg-Trace)
[2023-05-31] MEDS: Ondansetron ODT 4 MG TAB.RAPDIS TRANSLINGU (23:47)
[2023-05-31] MEDS: Loperamide HCl 2 MG CAPSULE 4 MG PO (23:47)
--- NOTE | 2023-05-31 23:50 | PC.NURSE ---
Pt brought in from waiting room with complaints of diarrhea and nausea for two days. Pt reports blood in her stool though she is on her menstrual period. Pt drank alcohol on wednesday night and stomach cramping and diarrhea began 6:30am the next day. PTis alert and oriented. Vss. Labs drawn and swab completed. Medications administered as per NOV. Call metzger within reach. plan of care onging
[2023-05-31 23:52] LABS: Bacteria Urine 2+ (None Seen); Hyaline Casts Urine 0-2 /LPF (0-2); RBC Urine >20 /HPF (0-2); UACC Culture Trigger YES; WBC Urine 21-50 /HPF (0-5)
== END 2023-06-01 00:39 | disposition home or self-care (01) ==
PROVIDERS: Physician Assistant Medical; Emergency Provider Internal Medicine; PCP Internal Medicine
DX: K52.9 Noninfective gastroenteritis and colitis, unspecified (principal); R11.2 Nausea with vomiting, unspecified; Z20.828 Contact with and (suspected) exposure to other viral communicable diseases; F17.210 Nicotine dependence, cigarettes, uncomplicated
CPT/HCPCS: 0241U; 80053; 81001; 83735; 84702; 85025; 87086; 99283; 99284

== ENCOUNTER 2024-12-06 09:50 | Outpatient (REF) | payer OTHER, SELFPAY ==
[2024-12-06 16:03] LABS: Bacterial Vaginosis PCR POSITIVE (Negative); Candida Group PCR NOT DETECTED (Not Detect); Candida glab krusei PCR NOT DETECTED (Not Detect); Trichomonas vaginalis PCR NOT DETECTED (Not Detect)
[2024-12-06 16:47] LABS: CT PCR NOT DETECTED (Not Detect.); NG PCR NOT DETECTED (Not Detect.)
--- OUTSIDE RECORDS SUMMARY | 2024-12-06 16:49 | XMS_ITS | Clinical Summary ---
Author Organization [address] Address [address] [place] [phone] Phone Care Team Providers Care Patternmaker Plastics Name Role Phone Suhas Christine MD Primary [...] 10/09/2023 Overview (06/19/2024): 10/09/2023 Treated with Macrobid, MARAI LUZ next visit 11/30/2023 treated with keflex [...] CERVICAL BIOPSY W/ LOOP ELECTRODE EXCISION PROCEDURE: [place] CONIZATION CERVIX W/WO D&C RPR ELTRD EXC; [...] Most Recently Relevant to Health Maintenance Insurance [facility] [place] [phone] Care Teams Patternmaker Plastics Relationship Specialty Start Date End Date Suhas Christine MD [address] [place] [phone] PCP - General Internal Medicine 07/24/24
== END 2024-12-06 09:51 | disposition home or self-care (01) ==
LOC: HO.LAB 09:50
PROVIDERS: PCP Internal Medicine; Visit Provider Internal Medicine
DX: R82.90 Unspecified abnormal findings in urine (principal); N89.8 Other specified noninflammatory disorders of vagina; Z32.02 Encounter for pregnancy test, result negative; Z13.9 Encounter for screening, unspecified
CPT/HCPCS: 81003; 81025; 81515; 87491; 87591; 99212

== ENCOUNTER 2024-12-06 09:50 | Outpatient (AMB) | payer OTHER, SELFPAY ==
--- NOTE | 2024-12-06 10:01 | AM.OFFWIN_ITS ---
Intake Vital Signs 12/06/24 10:10 Weight 190 lb BP 110/68 Blood Pressure Location Rt brachial Position Sitting Pulse 65 Pulse Source Pulse Oximeter Pulse Oximetry (%) 98 Oxygen Delivery Method Room Air Intake Visit Reasons: EP UTI? Intake Note: Patient here for foul odor discharge after having sex with a new partner last week. Patient Tobacco Use Status: Current everyday Tobacco user Allergies No Known Allergies Allergy (Verified 12/06/24 10:09) Medication List - Last Reconciled 12/06/24 by Karena Boss MD ondansetron 4 mg PO Q6-8H PRN Do you need a note to return to daycare/school/sports/work: No HPI EP UTI? HPI Details History - The patient is a 29 year old female pr esenting with urinary symptoms nia acterized by a strong odor persisting for about a week. - She denies experiencing any burning se nsation during urination. - No associated symptoms like fever, chi lls, nausea, vomiting, or back pain are present. - The odor is notably strong and unusual and may be due to a bacterial overgrowth, such as bacterial vaginosis. - She is currently menstruating, which c ould interfere with further diagnostic tests. - The patient uses a Mirena IUD and repo rted a negative test; she has a history of inconsistent results with different IUDs. Problem List -urine odor Vaginal discharge Patient Instructions - A vaginal sample will be taken for cul ture, including testing for bacterial vaginosis. - Notify the patient when lab reports ar e available. - Home care instructions to maintain per claire hygiene, especially during menstruation, to alleviate symptoms. - UA does not show signs of any bladder inflammation, urine blood 3+ present most likely secondary to menstrual cycle Review of Systems - General: No fever no chills - Neurological: No headaches no dizziness - Ear nose throat: No sore throat no hearing difficulty no ear pain - Cardiovascular: No syncope, no chest pain, no palpitations - Gastrointestinal: No nausea vomiting or diarrhea - Endocrine: No polyuria polydipsia no heat intolerance - Genitourinary: No dysuria , no blood in urine Physical Exam - General: No acute distress - HEENT: No acute findings - Neck: Supple - Respiratory system: Able to talk in f ull sentences, no audible wheeze - Gastrointestinal: No pain - Extremities: No new findings - DEMOLITION SPECIALIST: Alert awake oriented x3 motor se nsory intact - Skin: Normal turgor PFSH Medical History Abdominal pain Tobacco dependence Acute bronchitis Cough No known health problems Surgical History No pertinent past surgical history Family History Mother History of thyroid cancer Father Diabetes Social History Housing: Apartment Alcohol intake: current Alcohol intake frequency: a few times a month Patient Tobacco Use Status: Current everyday Tobacco user Tobacco use type: Cigarette Substance Use Type: Marijuana service: No Current occupational status: unemployed Cognitive needs: No Hearing needs: No Vision needs: No Physical Exam Vital Signs: Last Vital Signs Pulse 65 12/06/24 10:10 BP 110/68 12/06/24 10:10 Pulse Ox 98 12/06/24 10:10 Oxygen Delivery Method Room Air 12/06/24 10:10 Results AMB Urinalysis, Automated UA Leukoctes 0 Guzman/uL Last Edit by Erasmo Mcgraw CCM on 12/06/24 10:27 UA Nitrite Negative Last Edit by Erasmo Mcgraw [facility] on 12/06/24 10:27 UA Urobilinogen 0.2 mg/dL Last Edit by Erasmo Mcgraw [facility] on 12/06/24 10:27 UA Protein 0 mg/dL Last Edit by Erasmo Mcgraw [facility] on 12/06/24 10:27 UA pH 5.5 Last Edit by Erasmo Mcgraw [facility] on 12/06/24 10:27 UA Blood 200 Jeferson/uL Last Edit by Erasmo Mcgraw [facility] on 12/06/24 10:27 UA Specific [place] 1.030 Last Edit by Erasmo Mcgraw [facility] on 12/06/24 10:27 UA Ketone Negative Last Edit by Erasmo Mcgraw [facility] on 12/06/24 10:27 UA Bilirubin 1 mg/dL Last Edit by Erasmo Mcgraw [facility] on 12/06/24 10:27 UA Glucose 0 mg/dL Last Edit by SHAUN Peguero on 12/06/24 10:27 AMB Test Urine AMB Test Urine Negative Last Edit by SHAUN Peguero on 12/06/24 10:27 Results Reviewed Results Reviewed: Laboratory Last Values Urine pH (Auto) 5.5 12/06/24 10:25 Specific [place] (Auto) 1.030 12/06/24 10:25 Urine Protein (Auto) 0 mg/dL 12/06/24 10:25 Glucose (UA)(Auto) 0 mg/dL 12/06/24 10:25 Urine Ketones (Auto) Negative 12/06/24 10:25 Urine Blood (Auto) 200 Jeferson/uL 12/06/24 10:25 Urine Nitrite (Auto) Negative 12/06/24 10:25 Urine Bilirubin (Auto) 1 mg/dL 12/06/24 10:25 Urine Urobilinogen (Auto) 0.2 mg/dL 12/06/24 10:25 Leukocyte Esterase (Auto) 0 Guzman/uL 12/06/24 10:25 [facility] Negative 12/06/24 10:25 Assessment & Plan Assessment & Plan (1) Abnormal urine odor: Code(s): R82.90 - Unspecified abnormal findings in urine (2) Vaginal discharge: Code(s): N89.8 - Other specified noninflammatory disorders of vagina Plan History - The patient is a 29 year old female presenting with urinary symptoms characterized by a strong odor persisting for about a week. - She denies experiencing any burning sensation during urination. - No associated symptoms like fever, chills, nausea, vomiting, or back pain are present. - The odor is notably strong and unusual and may be due to a bacterial overgrowth, such as bacterial vaginosis. - She is currently menstruating, which could interfere with further diagnostic tests. - The patient uses a Mirena IUD and reported a negative test; she has a history of inconsistent results with different IUDs. Problem List -urine odor Vaginal discharge Patient Instructions - A vaginal sample will be taken for culture, including testing for bacterial vaginosis. - Notify the patient when lab reports are available. - Home care instructions to maintain personal hygiene, especially during menstruation, to alleviate symptoms. - UA does not show signs of any bladder inflammation, urine blood 3+ present most likely secondary to menstrual cycle Orders: Orders AMB HCG Urine Test Today Z32.02 - Encounter for test, result negative Bacterial Vaginosis Panel Today N89.8 - Other specified noninflammatory disorders of vagina, R82.90 - Unspecified abnormal findings in urine AMB Urinalysis Automated Today Z13.9 - Encounter for screening, unspecified Coding Level of Care Code Est Pt Level 3 (04762) Diagnoses Abnormal urine odor R82.90 Vaginal discharge N89.8
[2024-12-06 10:10] VITALS: BP 110/68; PULSE 65; O2SAT 98
--- OUTSIDE RECORDS SUMMARY | 2024-12-06 11:11 | XMS_ITS | Data Portability ---
Author Organization [facility], [address] Address [address] [place] [address] Assessment No assessment recorded. Plan of Treatment Reminders Order Date Submit Date Provider Last Modified By Organization Details Last Modified Time Details Appointments None recorded. Lab rapid flu (A+B) 2022 023 20995[facility], [address] [place] [address], [phone], 3 17:04:20 rapid SARS CoV 2 Ag, QL IA, respiratory specimen 2022 023 [facility], [address] [place] [address], [phone], 3 17:04:20 Referral None recorded. Procedures None recorded. Surgeries None recorded. Imaging None recorded. Medication Orders amoxicillin 500 mg tablet 2022 023 [facility]/Pharmacy #[id number], [address] [place], [address], 3 17:04:25 Allergy Relief (fluticason e) 50 mcg/actuati on nasal spray,suspe nsion 2022 023 [facility]/Pharmacy #[id number], [address] [place], [address], 3 17:04:25 Patient TargetsNo targets recorded. Patient Instructions Encounter Date Encounter Id Patient Instructions Last Modified By Organization Details Last Modified Time 10/04/2022 [id number] earache: care instructions Not available 10/04/2022 17:04:20 ear infection (otitis media): care instructions Not available 10/04/2022 17:04:20 An ear infection may start with a cold and affect the middle ear (otitis media). It can hurt a lot. Most ear infections clear up on their own in a couple of days and do not need antibiotics. Also, antibiotics do not work against viruses, which may be the cause of your infection. Regular doses of pain relievers are the best way to reduce your fever and help you feel better. How can you care for yourself at home? Take pain medicines exactly as directed. If the doctor gave you a prescription medicine for pain, take it as prescribed. If you are not taking a prescription pain medicine, take an frqf-qxb-rnvfoih medicine, such as acetaminophen (Tylenol), ibuprofen (Advil, Motrin), or naproxen (Aleve). Read and follow all instructions on the label. Do not take two or more pain medicines at the same time unless the doctor told you to. Many pain medicines have acetaminophen, which is Tylenol. Too much acetaminophen (Tylenol) can be harmful. Plan to take a full dose of pain reliever before bedtime. Getting enough sleep will help you get better. Try a warm, moist face cloth on the ear. It may help relieve pain. If your doctor prescribed antibiotics, take them as directed. Do not stop taking them just because you feel better. You need to take the full course of antibiotics. Not available 10/04/2022 17:02:11 If you test positive for COVID-19, stay home for at least 5 days and isolate from others in your home. You are likely most infectious during these first 5 days. Wear a high-quality mask if you must be around others at home and in public. Do not go places where you are unable to wear a mask. For travel guidance, see CDC? s Travel webpage. Do not travel. Stay home and separate from others as much as possible. Use a separate bathroom, if possible. Take steps to improve ventilation at home, if possible. Don? t share personal household items, like cups, towels, and utensils. Monitor your symptoms. If you have an emergency warning sign (like trouble breathing), seek emergency [...] Avoid being around people who are more likely to get very sick from COVID-19. Remember to wear a high-quality mask when indoors around others at home and in public. Do not go places where you are unable to wear a mask until you are able to discontinue masking (see below). For travel guidance, see CDC? s Travel webpage. Not available 10/04/2022 17:01:30 Reason for Referral None Reported. Results Created Date Observation Date Name Description Value Unit Range Abnormal Flag Note LastModifiedBy Organization Detail LastModifiedTime 10/04/1910/04/2022 rapid SARS CoV 2 Ag, QL IA, respi rator y speci men Unknown Analyte Normal =Negat na Not Available _[address], [address], 10/04/2022 16:07:21 10/04/19 23 10/04/2022 rapid SARS CoV 2 Ag, QL IA, respi rator y speci men Unknown Analyte negati ve Not Available [address] [place], [address], 10/04/2022 16:07:21 10/04/19 23 10/04/2022 rapid flu (A+B) Unknown Analyte Normal = Negati ve Not Available [address] [place] [address] [place], [phone], 10/04/2022 16:07:15 10/04/19 23 10/04/2022 rapid flu (A+B) Unknown Analyte negati ve Not Available [address] [place], [place] [address] [place], [address], 10/04/2022 16:07:15 10/04/19 23 10/04/2022 rapid flu (A+B) Unknown Analyte Normal = Negati ve Not Available 20995_[facility] [address] [place], [address], 10/04/2022 16:07:15 10/04/19 23 10/04/2022 rapid flu (A+B) Unknown Analyte negati ve Not Available [facility] [address] [place], [address], 10/04/2022 16:07:15 Result Notes None recorded. Problems No Known Problems Medical Equipment None Reported. Allergies No known drug allergies Medications Name Sig Start Date Stop Date Status Note LastModified by Organization Details LastModified Time amoxicillin 500 mg tablet Take 1 tablet every 8 hours by oral route with meals for 10 days. 2022 active Not Available Not Available Not Avai lable fluticasone propionate 50 mcg/actuatio n nasal spray,suspen osvaldo SPRAY 1 SPRAY BY INTRANASAL ROUTE TWICE A DAY DIRECTED active Not Available Not Available No t Available active Not Available Not Avai lable Not Available Vitals Date Recorded Body height Body mass index (BMI) Body weight Pain severity - 0-10 verbal numeric rating [Score] - Reported Respiratory rate Oxygen saturation Oxygen saturation in Arterial blood by Pulse oximetry Heart rate Body temperature Systolic blood pressure Diastolic blood pressure Provider Name and Address Organization Details Last Updated DateTime 3 172.72 cm 28.9 kg/m2 73610.5 5 g 0 18 /min 99 % 99 % 60 /min 98 [degF] 105 mm[Hg] 70 mm[Hg] LUCIO [facility] 16:08:05 Social History Question Answer Notes LastModified by Organizat ion Details LastModified Time Tobacco Smoking Status Current Every Day Smoker One cigarette per day [facility] 10/04/2022 16:07:06 What Is Your Level Of Alcohol Consumption? None [email or web address] Information not available 10/04/2022 Do You Use Any Illicit Or Recreational Drugs? No [email or web address] Information not available 10/04/2022 Have You Recently Traveled Abroad? No Information not available 10/04/2022 Do You Or Have You Ever Used Any Other Forms Of Tobacco Or Nicotine? No Information not available 10/04/2022 Sex: Unknown Functional Status None recorded. Mental Status None recorded. Family History Relationship Description Onset Age of this Age Resolved Age Notes LastModified by Organization Details LastModified Time Father No current problems or disability [email or web address] Not available 10/04 16:06:36 Mother No current problems or disability [email or web address] Not available 10/04 16:06:36 Medical History No medical history recorded. Gynecological HistoryNo gynecological history recorded. Obstetrics History GPAL:G 0 P 0 0 0 0 Past Encounters Encounter ID Performer Location Encounter Start Date Encounter Closed Date Diagnosis/Indication Diagnosis SNOMED-CT Code Diagnosis ICD10 Code Diagnosis Note [id number] [facility] [address] [place] [address] 10/03/2018 16:51:31 10/03/2018 17:21:37 [id number] [facility] [address] [place] [address] 06/07/2022 11:37:18 06/07/2022 12:29:11 [id number] [address] [address] [place] [address] 02/20/2016 15:01:00 02/20/2016 16:22:22 [id number] [address] [address] [place] [address] 07/30/2018 18:07:08 07/30/2018 18:59:35 [id number] [address] [address] [place] [address] 11/30/2018 14:48:07 11/30/2018 15:32:53 [id number] [facility] [address] [place] [address] 06/04/2021 08:59:09 06/04/2021 11:48:48 [id number] [facility] [address] [place] [address] 05/24/2017 12:29:29 05/24/2017 14:02:36 [id number] Juan Williamson NP [address] [address] [place] [address] 10/04/2022 15:44:40 10/04/2022 17:06:24 Exposure to SARS-CoV-2 005464928 Z20.822 Acute righ t otitis media 889839682 H66.91 [id number] Z33.1 Health Concerns Section Related Observation LastModified by Organization Detai ls LastModified Time None Recorded Concern Status LastModified by Organization Details LastModified Time None Recorded Advance Directives Directive None Recorded Payers Encounter Date Sequence Insurance Name Policy Number Policy Doran Covered Member ID Doran Member ID Guarantor Name 11/30/2018 1 [facility] PL[facility] (MEDICAID HMO) PIPERENERiky Torresna M Gera Rachele M [place] 06/04/2021 1 [facility] PLAN (MEDICAID HMO) [id number] Griffithswna M [place] Rachele M Gera 06/07/2022 1 [facility] PLAN (MEDICAID HMO) SANDY Griffithswna M Gera Rachele M [place] 10/04/2022 1 [facility] PLAN (MEDICAID HMO) SANDY Griffithswna M [place] Rachele M Gera Notes Date Note Type Note Provider Name and Address Organization Details Recorded Time 10/04/2022 text/html CongestionReport ed bypatient.Notes:nasal congestion with post nasal drip x 3 days. denies nay fever or fever with chills. no SOB or respiratory distress. Juan Williamson NP [address] [place], [address], [place] - [facility] 10/04/2022 17:05:55 OBGyn Episode No OBEpisode recorded.
--- OUTSIDE RECORDS SUMMARY | 2024-12-06 11:11 | XMS_ITS | Clinical Summary ---
Author Organization [address] Address [address] [place] [phone] Phone Care Team Providers Care Data Communications Engineer Name Role Phone Suhas Christine MD Primary Care Pr ovider Allergies No known active allergies Medications doxylamine (UNISOM) 25 mg tablet Take 1 Tablet by mouth at bedtime as needed (sleep). 10/20/2023 Active famotidine (PEPCID) 20 mg tablet Take 1 Tablet by mouth 2 times daily. 03/07/2024 04/01/20 25 Active FLUoxetine (PROzac) 20 mg capsule Take 1 Capsule by mouth daily. Active hydrOXYzine pamoate (VISTARIL) 25 mg capsule Take 1 Capsule by mouth 3 times daily as needed for Anxiety. 11/24/2023 Active ondansetron (ZOFRAN) 4 mg tablet Take 1 Tablet by mouth every 8 hours as needed for Nausea. 10/20/2023 Active PNV 119-iron fum-folic acid ( 19) 29 mg iron- 1 mg tablet Take 1 Tablet by mouth daily. 10/20/2023 Active sertraline (ZOLOFT) 25 mg tabletIndicatio ns: depression TAKE 1 TABLET BY MOUTH ONCE DAILY FOR 2 WEEKS, THEN INCREASE TO 2 TABLETS DAILY 42 tablet 2 07/25/2024 Active Active Problems Problem Noted Date Diagnosed Date Positive GBS test 04/10/2024 Overview (06/19/2024): Treat in labor Short interval between pregn ancies affecting , antepartum 10/20/2023 Recurrent UTI (urinary tract infection) complicating 10/09/2023 Overview (06/19/2024): 10/09/2023 Treated with Macrobid, MARIA LUZ next visit 11/30/2023 treated with keflex 01/26/2024 treated with macrobid, will discuss daily suppressive treatment next visit. 02/16/2024 started on macrobid 100 nightly for suppression. Condyloma acuminatum of vulva 06/10/2023 anxiety 06/10/2023 cardiac echogenic focus, antepartum 2022 Overview (06/19/2024): Considered normal variant in this preg, all other tesitng and FAS WNL Marijuana use 09/17/2022 Overview (06/19/2024): + at intake 01/21/24 - reports quit 01/21/24 UDS +MJ result 04/12- still smoking MJ occasional. Discussed marijuana use in , random testing, filing 51A, potential for DCF involvement, advised to stop use. Last Assessment & Plan: Will need UDS on admission for IOL Maternal tobacco use in first trimester 09/17/19 23 Overview (06/19/2024): Patient counselled to quit; advised of risks to growing fetus. 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 Anxiety 12/06/2020 Overview (06/19/2024): 11/24/2023 discussed the risks of Prozac, she decided to come off of it. She accepts vistaril prn she has used that in the past. HGSIL (high grade squamous i ntraepithelial lesion) on Pap smear of cervix 04/17/2020 Overview (06/19/2024): Colpo 04/29/20 negative, Pap and ECC neg 12/2021, repeat Pap with cotesting in 12/2022- ASCUS/HPV neg, spoke with Dr. Vail, recommends repeat pap Comments Yes Immunizations Name Administration Dates Next Due Influenza Quadravalent, MDCK , 0.5ml, preservative free (Flucelvax) 6mo and older 07/18/2020 Influenza trivalent, 0.5mL, preservative free (Fluarix; FluLaval; Fluzone) ages 6mo and older (Afluria) 3 years and older 06/07/2015 Tdap Tetanus diptheria acell ular pertussis (Boostrix; Adacel) 7yo and older 02/16/2024,01/19/2023,08/20/2020,2015 Surgical History Surgery Date Site/Laterality Comments TONSILLECTOMY 2012 PROCEDURE: HISTORICAL TONSILLECTOMY CERVICAL BIOPSY W/ LOOP ELECTRODE EXCISION PROCEDURE: [place] CONIZATION CERVIX W/WO D&C RPR ELTRD EXC; COMMENT: KWADWO III focally positive endocervical margin Medical History Medical History Date Comments History of marijuana use 03/22/2020 DX:Hist ory of marijuana use; COMMENT: 03/22/20 pt states she stopped use about 3-4 months ago with + test UDS positive cannabinoids 08/20/20 UDS negative cannabinoids 09/24/20 Former cigarette smoker 03/22/2020 DX:Lamar r cigarette smoker; COMMENT: 03/22/20 pt states she quit 3 mo ago Abnormal GTT (glucose tolerance test) 03/24/2023 DX:Abnormal GTT (glucose tolerance test); COMMENT: 03/24/2023 at 37w5d 172- 3 hr ordered History of diet controlled gestational diabetes mellitus (GDM) 2022 DX:History of diet controlled gestational diabetes mellitus (GDM); COMMENT: Dx at 39w4d Family History Medical History Relation Name Comments No Known Problems Brother 1 No Known Problems Brother 2 No Known Problems Brother 3 No Known Problems Brother 4 Diabetes Father Other: Other Father heart problems Other: parapalegic Father No Known Problems Maternal Grandfather Arthritis Maternal Grandmother Asthma Maternal Grandmother Other: thyroid cancer Mother No Known Problems Paternal Grandfather No Known Problems Paternal Grandmother No Known Problems Sister Breast cancer Neg Hx Cervical cancer Neg Hx Colon cancer Neg Hx Ovarian cancer Neg Hx Pancreatic cancer Neg Hx Prostate cancer Neg Hx Uterine cancer Neg Hx Relation Name Status Comments Brother 1 Alive Brother 2 Alive Brother 3 Alive Brother 4 Alive Father Alive Maternal Grandfather Maternal Grandmother Alive Mother Alive Paternal Grandfather Paternal Grandmother Alive Sister Alive Social History Tobacco Use Types Packs/Day Years Used Date Smoking Tobacco: Every Day Cigarettes Last attempted to quit: 01/05/2020 Smokeless Tobacco: Never Alcohol Use Standard Drinks/Week Comments No 0 (1 standard drink = 0.6 oz pur e alcohol) Comments Yes Sex and Gender Information Value Date Recorded Sex Assigned at Not on file Legal Sex Female 2:43 PM EST Gender Identity Not on file Sexual Orientation Not on file Obstetrics History Para Term AB IAB SAB Ectopic Multiple Livin g Live Births 1 Date Outcome GA Total Labor Labor/2nd/3rd Weight Sex Type Anes PTL Mine A1 A5 Name Clin Current Summary Episode Dates Number of Fetuses Estimated Date of Delivery 07/24/2024 - Present (12/06/2024) Unknown Dating Summary Based On [facility] [place] Diff Ultrasound on 09/15/2023 05/03/2024 GA:7w0d Last Filed Vital Signs Vital Sign Reading Time Taken Comments Blood Pressure 104/50 06/28/2024 11:17 AM EDT Pulse 66 06/28/2024 11:17 AM EDT Temperature - - Respiratory Rate - - Oxygen Saturation - - Inhaled Oxygen Concentration - - Weight 87.6 kg (193 lb 3.2 oz) 06/28/2024 11:17 AM EDT Height 172.7 cm (5' 8 ) 04/26/2024 10:08 AM EDT Body Mass Index 29.38 04/26/2024 10:08 AM EDT Plan of Treatment Health Maintenance Due Date Last Done Comments Hepatitis B Vaccines (1 of 3 - 19+ 3-dose series) 2013 Pneumococcal Vaccine: Pediatrics (0 to 5 Years) and At-Risk Patients (6 to 64 Years) (1 of 2 - PCV) 2013 Cholesterol Screening (Lipid Panel) 08/15/2022 Depression Screening 08/15/2022 Social Influencers of Health Screening 08/15/2022 COVID-19 Vaccine ( season) 2024 06/13/2021, 05/16/2021 Influenza Vaccine (Season Ended) 2025 07/18/2020, 06/07/2015 Cervical Cancer Screening: HPV 06/10/2028 06/10/2023 DTaP,Tdap,and Td Vaccines (5 - Td or Tdap) 02/15/2034 02/16/2024, 01/19/2023, 08/20/2020, Additional history exists HIV Screening Completed 10/08/2023 Hepatitis C Screening Completed 10/08/2023 HIB Vaccines Aged Out No longer eligi ble based on patient's age to complete this topic HPV Vaccines Aged Out No longer eligi ble based on patient's age to complete this topic Hepatitis A Vaccines Aged Out No long er eligible based on patient's age to complete this topic IPV Vaccines Aged Out No longer eligi ble based on patient's age to complete this topic Meningococcal ACWY Vaccine Aged Out N o longer eligible based on patient's age to complete this topic Meningococcal B Vacine Aged Out No lo nger eligible based on patient's age to complete this topic RSV Immunization Patients Under 20 months Aged Out No longer eligible based on patient's age to complete this topic Procedures Procedure Name Priority Date/Time Associated Diagnosis Comments HEPATITIS C SCREENING Routine 10/08/2023 HIV SCREENING Routine 10/08/2023 HPV Routine 06/10/2023 from Last 3 Months or Most Recently Relevant to Health Maintenance Results * HIV Screening (10/08/2023) HIV Screening Abstracted Historical Provider HEALTH MAINTENANCE Final Result * Hepatitis C Screening (10/08/2023) Hepatitis C Screening Abstracted Historical Provider HEALTH MAINTENANCE Final Result * Cervical Cancer Screening: HPV (06/10/2023) Cervical Cancer Screening: HPV No Interpretation , Abstracted Historical Provider HEALTH MAINTENANCE Final Result from Last 3 Months or Most Recently Relevant to Health Maintenance Insurance [facility] Care Teams Data Communications Engineer Relationship Specialty Start Date End Date Suhas Chrisitne MD [address] [place] [phone] PCP - General Internal Medicine 07/24/24
== END 2024-12-06 10:36 | disposition home or self-care (01) ==
PROVIDERS: PCP Internal Medicine; Visit Provider Internal Medicine
DX: R82.90 Unspecified abnormal findings in urine (principal); N89.8 Other specified noninflammatory disorders of vagina; Z32.02 Encounter for pregnancy test, result negative; Z13.9 Encounter for screening, unspecified